=== PATIENT | male | born 1970 | race American Indian/Alaskan Native ===

== ENCOUNTER 2016-12-10 01:08 | Emergency (ER) | payer SELFPAY ==
[2016-12-10 02:25] VITALS: BP 130/86
[2016-12-10 03:01] LABS: Basophils % (Auto) 1.4 % (0.0-1.8); Eosinophils % (Auto) 1.9 % (0.0-4.3); Hemoglobin 14.6 gm/dl (11.8-15.2); Mean Corpuscular HGB Conc 33 % (32-34); Mean Corpuscular Hemoglobin 28 pg (28-32); Mean Corpuscular Volume 85 fl (84-94); Platelet Count 225 K/mm3 (140-440); Red Cell Distribution Width 13.9 % (13.2-15.2); White Blood Count 7.7 K/mm3 (4.5-11.0)
[2016-12-10 03:17] LABS: Alanine Aminotransferase 26 units/L (7-56); Albumin/Globulin Ratio 1.3 %; Alkaline Phosphatase 71 units/L (35-129); BUN/Creatinine Ratio 11.11; Bilirubin,Total 0.5 mg/dL (0.1-1.2); Blood Urea Nitrogen 10 mg/dL (9-20); Calcium 8.8 mg/dL (8.4-10.2); Carbon Dioxide 27 mmol/L (22-30); Chloride 99.9 mmol/L (98-107); Glucose 105 mg/dL (75-100); Lipase 40 units/L (13-60); Potassium 3.7 mmol/L (3.6-5.0); Sodium 141 mmol/L (137-145); Total Protein 7.2 g/dL (6.3-8.2)
[2016-12-10 03:21] LABS: Bilirubin,Urine NEG (Negative); Blood,Urine SM (Negative); Ketones,Urine NEG (Negative); Leukocyte Esterase,Urine NEG (Negative); Mucus,Urine FEW /HPF; Nitrite,Urine NEG (Negative); Protein,Urine <15 mg/dL mg/dL (Negative); Urobilinogen,Urine < 2.0 mg/dL (<2.0)
[2016-12-10 03:29] LABS: Anion Gap 18 mmol/L
--- NOTE | 2016-12-10 06:29 | Emergency Department Report ---
Chief Complaint: Abdominal Pain Stated Complaint: ABDOMINAL PAIN Time Seen by Provider: 12/10/16 06:28 - HPI History of Present Illness: Patient here complaining the upper abdominal pain 3 days. He is also complaining of burning with urination. Denies any fever or chills. Denies any nausea vomiting. Describes the pain as burning and it's 8 out of 10. - ROS Review of Systems: All systems are negative unless stated in HPI above. - Exam Vital Signs: Vital Signs 12/10/16 02:23 Temperature 98.3 F Pulse Rate 54 L Respiratory 18 Rate Blood Pressure 130/86 O2 Sat by Pulse 97 Oximetry Physical Exam: General: This is a 46-year-old male well-nourished well-developed in no acute distress. GI: Mild tenderness to palpate to mid upper abdomen above the umbilical area. No guarding or rebound tenderness. Bowel sounds in all quadrants. CV: S1, S2. Regular rate and rhythm. MSE screening note: Focused history and physical exam performed. Due to findings the following was ordered:see mdm ED Medical Decision Making - Lab Data Result diagrams: 12/10/16 02:41 12/10/16 02:41 Lab Results 12/10/16 12/10/16 12/10/16 Range/Units 02:41 02:41 Unknown WBC 7.7 (4.5-11.0) K/mm3 RBC 5.20 H (3.65-5.03) M/mm3 Hgb 14.6 (11.8-15.2) gm/dl Hct 44.0 (35.5-45.6) % MCV 85 (84-94) fl MCH 28 (28-32) pg MCHC 33 (32-34) % RDW 13.9 (13.2-15.2) % Plt Count 225 (140-440) K/mm3 Lymph % (Auto) 46.1 H (13.4-35.0) % [place] % (Auto) 5.9 (0.0-7.3) % Eos % (Auto) 1.9 (0.0-4.3) % Baso % (Auto) 1.4 (0.0-1.8) % Lymph # 3.5 (1.2-5.4) K/mm3 [place] # 0.4 (0.0-0.8) K/mm3 Eos # 0.1 (0.0-0.4) K/mm3 Baso # 0.1 (0.0-0.1) K/mm3 Seg Neutrophils % 44.7 (40.0-70.0) % Seg Neutrophils # 3.4 (1.8-7.7) K/mm3 Sodium 141 (137-145) mmol/L Potassium 3.7 (3.6-5.0) mmol/L Chloride 99.9 (98-107) mmol/L Carbon Dioxide 27 (22-30) mmol/L Anion Gap 18 mmol/L BUN 10 (9-20) mg/dL Creatinine 0.9 (0.8-1.5) mg/dL Estimated GFR > 60 ml/min BUN/Creatinine Ratio 11.11 % Glucose 105 H (75-100) mg/dL Calcium 8.8 (8.4-10.2) mg/dL Total Bilirubin 0.5 (0.1-1.2) mg/dL AST 77 H (5-40) units/L ALT 26 (7-56) units/L Alkaline Phosphatase 71 (35-129) units/L Total Protein 7.2 (6.3-8.2) g/dL Albumin 4.0 (3.9-5) g/dL Albumin/Globulin Ratio 1.3 % Lipase 40 (13-60) units/L Urine Color Yellow (Yellow) Urine Turbidity Clear (Clear) Urine pH 5.0 (5.0-7.0) Ur Specific [place] 1.012 (1.003-1.030) Urine Protein <15 mg/dl (Negative) mg/dL Urine Glucose (UA) Neg (Negative) mg/dL Urine Ketones Neg (Negative) mg/dL Urine Blood Sm (Negative) Urine Nitrite Neg (Negative) Urine Bilirubin Neg (Negative) Urine Urobilinogen < 2.0 (<2.0) mg/dL Ur Leukocyte Esterase Neg (Negative) Urine WBC (Auto) 1.0 (0.0-6.0) /HPF Urine RBC (Auto) 1.0 (0.0-6.0) /HPF Urine Mucus Few /HPF - Medical Decision Making Medical decision making: Patient seen by provider in triage area. Appropriate protocol activated and patient to main ED to be seen by physician. ED Disposition for MSE Condition: Stable
[2016-12-10] MEDS ORDERED: NARCAN 0.4 MG/1 ML ONE (22:01)
--- NOTE | 2016-12-11 14:56 | ED Elopement Review ---
ED Pt Elopement review - Results review Lab results: Laboratory Tests 12/10/16 12/10/16 12/10/16 02:41 02:41 Unknown WBC 7.7 RBC 5.20 H Hgb 14.6 Hct 44.0 MCV 85 MCH 28 MCHC 33 RDW 13.9 Plt Count 225 Lymph % (Auto) 46.1 H [place] % (Auto) 5.9 Eos % (Auto) 1.9 Baso % (Auto) 1.4 Lymph # 3.5 [place] # 0.4 Eos # 0.1 Baso # 0.1 Seg Neutrophils % 44.7 Seg Neutrophils # 3.4 Sodium 141 Potassium 3.7 Chloride 99.9 Carbon Dioxide 27 Anion Gap 18 BUN 10 Creatinine 0.9 Estimated GFR > 60 BUN/Creatinine Ratio 11.11 Glucose 105 H Calcium 8.8 Total Bilirubin 0.5 AST 77 H ALT 26 Alkaline Phosphatase 71 Total Protein 7.2 Albumin 4.0 Albumin/Globulin Ratio 1.3 Lipase 40 Urine Color Yellow Urine Turbidity Clear Urine pH 5.0 Ur Specific [place] 1.012 Urine Protein <15 mg/dl Urine Glucose (UA) Neg Urine Ketones Neg Urine Blood Sm Urine Nitrite Neg Urine Bilirubin Neg Urine Urobilinogen < 2.0 Ur Leukocyte Esterase Neg Urine WBC (Auto) 1.0 Urine RBC (Auto) 1.0 Urine Mucus Few - Call Back decision Pt Call Back Decision: No action required
== END 2016-12-10 19:30 | disposition left against medical advice (07) ==
LOC: ED 01:08
DX: R10.9 Unspecified abdominal pain (principal); R39.198 Other difficulties with micturition; Z53.21 Procedure and treatment not carried out due to patient leaving prior to being seen by health care provider
CPT/HCPCS: 36415; 80053; 81001; 83690; 85025; J2310

== ENCOUNTER 2017-01-19 19:04 | Emergency (ER) | payer OTHER ==
[2017-01-19 20:06] LABS: Hematocrit 46.3 % (35.5-45.6); Hemoglobin 15.8 gm/dl (11.8-15.2); Mean Corpuscular HGB Conc 34 % (32-34); Mean Corpuscular Hemoglobin 29 pg (28-32); Mean Corpuscular Volume 84 fl (84-94); Platelet Count 216 K/mm3 (140-440); Red Blood Count 5.51 M/mm3 (3.65-5.03); Red Cell Distribution Width 13.9 % (13.2-15.2); White Blood Count 8.1 K/mm3 (4.5-11.0)
[2017-01-19 20:19] LABS: Anion Gap 18 mmol/L; Blood Urea Nitrogen 11 mg/dL (9-20); Calcium 9.4 mg/dL (8.4-10.2); Carbon Dioxide 29 mmol/L (22-30); Chloride 95.2 mmol/L (98-107); Glucose 85 mg/dL (75-100); Potassium 3.7 mmol/L (3.6-5.0); Sodium 138 mmol/L (137-145)
[2017-01-19 20:34] LABS: Bilirubin,Urine NEG (Negative); Blood,Urine SM (Negative); Ketones,Urine NEG (Negative); Leukocyte Esterase,Urine NEG (Negative); Nitrite,Urine NEG (Negative); Protein,Urine <15 mg/dL mg/dL (Negative); Urobilinogen,Urine < 2.0 mg/dL (<2.0); WBC,Urine < 1.0 /HPF (0.0-6.0)
[2017-01-19] MEDS ORDERED: ZOFRAN ODT PO ONE (21:58)
[2017-01-19] MEDS ORDERED: NORCO 5/325 PO ONE (21:59)
[2017-01-19] MEDS ORDERED: PEPCID PO ONE (21:59)
[2017-01-19 22:09] LABS: Alanine Aminotransferase 24 units/L (7-56); Albumin 4.3 g/dL (3.9-5); Albumin/Globulin Ratio 1.1 %; Alkaline Phosphatase 83 units/L (35-129); Bilirubin,Total 0.5 mg/dL (0.1-1.2); Lipase 31 units/L (13-60); Total Protein 8.1 g/dL (6.3-8.2)
--- NOTE | 2017-01-19 22:13 | Emergency Department Report ---
HPI - General Chief Complaint: Nausea/Vomiting/Diarrhea Time Seen by Provider: 01/19/17 21:14 - HPI HPI: The patient is a 46-year-old male who presents for evaluation of vomiting, diarrhea, and abdominal pain. The patient reports 1-2 weeks of recurring cramping mid abdominal pain, mild in severity, exacerbated with retching and vomiting. The patient states that he has experienced intermittent nausea or vomiting, and frequent episodes of loose watery stools for the same duration. The patient denies fever, dysuria, hematuria, blood in the stools, black tarry stools, recent antibiotic use, travel outside the country, exposure to raw or uncooked seafood, reheated foods, untreated water, unpasteurized dairy. ED Past Medical Hx - Past Medical History Hx Hypertension: Yes Hx GERD: Yes - Social History Smoking Status: Never Smoker Substance Use Type: None - Medications Home Medications: Home Medications Medication Instructions Recorded Confirmed Last Taken Type HYDROcodone/APAP 5-325 [[place] 1 each PO Q4HR PRN #15 tablet 02/22/16 Unknown Rx 5/325] Omeprazole [PriLOSEC] 40 mg PO BID 02/22/16 02/22/16 02/21/16 08:00 History Ondansetron [Zofran Odt] 4 mg PO Q8HR PRN #9 tab.rapdis 02/22/16 Unknown Rx Famotidine [Pepcid] 20 mg PO BID #30 tablet 01/19/17 Unknown Rx HYDROcodone/APAP 7.5-325 [[place] 1 each PO Q8HR PRN #15 tablet 01/19/17 Unknown Rx 7.5-325 mg TAB] Omeprazole Magnesium [PriLOSEC Otc] 40 mg PO BID #30 tab 01/19/17 Unknown Rx Ondansetron [Zofran TAB] 4 mg PO Q8HR PRN #20 tablet 01/19/17 Unknown Rx ED Review of Systems ROS: Stated complaint: N/V /CONRADO/WEIGHT LOSS Other details as noted in HPI Constitutional: denies: fever ENT: denies: throat or neck pain Respiratory: denies: cough, shortness of breath Cardiovascular: denies: chest pain Endocrine: denies unexplained weight loss or gain Gastrointestinal: reports abdominal pain, nausea, vomiting, diarrhea Genitourinary: denies: dysuria Musculoskeletal: denies: leg swelling Skin: denies: rash Neurological: denies: headache Hematological/Lymphatic: denies: easy bleeding or easy bruising Psych: denies sadness or hopelessness Physical Exam - Physical Exam Vital Signs: Vital Signs 01/19/17 19:24 Temperature 97.8 F Pulse Rate 62 Blood Pressure 146/96 O2 Sat by Pulse 99 Oximetry Physical Exam: General: well-nourished, well-developed, no acute distress Head: Normocephalic, atraumatic Eyes: normal sclera ENT: Mucous membranes are pink and moist Neck: trachea midline, neck supple, No neck stiffness, no cervical adenopathy Respiratory: Breath sounds equal bilaterally, no wheezing, rales, or rhonchi Cardio: S1 and S2 present, no murmurs, rubs, gallops, capillary refill is brisk Abdomen: Normoactive bowel sounds, soft abdomen, epigastric tenderness to palpation present, no rigidity, no guarding or rebound tenderness Musc: No pitting edema Skin: No rash Neuro: no facial drooping, normal speech Psych: Normal affect ED Course Vital Signs 01/19/17 19:24 Temperature 97.8 F Pulse Rate 62 Blood Pressure 146/96 O2 Sat by Pulse 99 Oximetry ED Medical Decision Making - Lab Data Result diagrams: 01/19/17 19:42 01/19/17 19:42 - Medical Decision Making The patient was seen and examined by myself. The patient is placed on a telemetry monitor and continuous pulse ox. On initial evaluation, the patient was found to be in no distress. Evaluation orders were placed. The patient is given a tablet of [place] and present for his pain and Zofran for nausea. Lab results reveal elevated RBC, hemoglobin, and hematocrit, consistent with hemoconcentration and exam findings of dehydration, and otherwise labs were grossly unremarkable, including normal LFTs and lipase. The patient was reevaluated and reported that his symptoms were markedly improved. The patient is stable for discharge with outpatient follow-up. The patient is given follow- up and return instructions. The patient expressed understanding and agreed with the plan. The patient is discharged in stable condition. Critical care attestation.: If time is entered above; I have spent that time in minutes in the direct care of this critically ill patient, excluding procedure time. ED Disposition Clinical Impression: Abdominal pain, acute, epigastric, Nausea and vomiting in adult patient, Dehydration Disposition: DISCHARGED TO HOME OR SELFCARE Is pt being admited?: No Does the pt Need Aspirin: No Condition: Stable Instructions: Gastroenteritis (ED), Nutrition Tips for Relief of Diarrhea (ED) , Peptic Ulcer (ED), Diet for Ulcers and Gastritis (ED) Prescriptions: Famotidine [Pepcid] 20 mg PO BID #30 tablet HYDROcodone/APAP 7.5-325 [[place] 7.5-325 mg TAB] 1 each PO Q8HR PRN #15 tablet PRN Reason: Pain Ondansetron [Zofran TAB] 4 mg PO Q8HR PRN #20 tablet PRN Reason: Nausea Referrals: [facility] [Provider Group] - 3-5 Days Time of Disposition: 22:07
[2017-01-19 22:18] LABS: Bilirubin,Direct < 0.2 mg/dL (0-0.2); Bilirubin,Indirect 0.3 mg/dL
[2017-01-19 22:46] VITALS: BP 124/92
== END 2017-01-19 22:39 | disposition home or self-care (01) ==
LOC: ED 19:04
DX: I10 Essential (primary) hypertension (principal); K21.9 Gastro-esophageal reflux disease without esophagitis; E86.0 Dehydration; R10.13 Epigastric pain; R11.2 Nausea with vomiting, unspecified; R19.7 Diarrhea, unspecified; Z88.1 Allergy status to other antibiotic agents; Z79.899 Other long term (current) drug therapy
CPT/HCPCS: 36415; 80048; 80074; 81001; 83690; 85025; Q0162

== ENCOUNTER 2017-06-10 08:32 | Emergency (ER) | payer OTHER ==
[2017-06-10 09:10] LABS: Basophils % (Auto) 1.2 % (0.0-1.8); Hematocrit 45.7 % (35.5-45.6); Hemoglobin 15.4 gm/dl (11.8-15.2); Mean Corpuscular HGB Conc 34 % (32-34); Mean Corpuscular Hemoglobin 29 pg (28-32); Mean Corpuscular Volume 86 fl (84-94); Platelet Count 207 K/mm3 (140-440); Red Cell Distribution Width 14.1 % (13.2-15.2); White Blood Count 5.7 K/mm3 (4.5-11.0)
[2017-06-10 09:21] LABS: Anion Gap 17 mmol/L; BUN/Creatinine Ratio 8.18; Blood Urea Nitrogen 9 mg/dL (9-20); Calcium 9.3 mg/dL (8.4-10.2); Carbon Dioxide 29 mmol/L (22-30); Chloride 99.6 mmol/L (98-107); Glucose 85 mg/dL (75-100); Potassium 4.6 mmol/L (3.6-5.0); Sodium 141 mmol/L (137-145)
[2017-06-10 09:47] LABS: Bacteria,Urine 1+ /HPF (Negative); Bilirubin,Urine NEG (Negative); Blood,Urine SM (Negative); Ketones,Urine 20 mg/dL (Negative); Leukocyte Esterase,Urine NEG (Negative); Nitrite,Urine NEG (Negative); Protein,Urine <15 mg/dL mg/dL (Negative); Urobilinogen,Urine < 2.0 mg/dL (<2.0)
[2017-06-10 09:53] LABS: WBC,Urine < 1.0 /HPF (0.0-6.0)
[2017-06-10] MEDS ORDERED: PEPCID PO ONE (12:54)
[2017-06-10] MEDS ORDERED: CARAFATE PO ONE (12:54)
[2017-06-10] MEDS ORDERED: ZOFRAN ODT PO ONE (12:54)
--- NOTE | 2017-06-10 12:55 | Emergency Department Report ---
ED General Adult HPI - General Chief complaint: Nausea/Vomiting/Diarrhea Stated complaint: N/V/D Time Seen by Provider: 06/10/17 12:42 Source: patient, EMS (ems notes not available at time of chart dictation) Mode of arrival: Ambulatory Limitations: No Limitations - History of Present Illness Initial comments: This is a 47-year-old male. He is previously unknown to me. 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 Patient has a history of hiatal hernia and constipation. He has been taking MiraLAX for the past 2 weeks. He MiraLAX twice daily. He presents to the ER with abdominal cramping, diarrhea, and resolved nausea and vomiting. The abdominal cramping is intermittent, now resolved, and does not have any exacerbating or relieving factors. He reports 2 episodes of nonbloody, nonbilious emesis in the past 48 hours. He reports that everything he eats "goes right through me." There is no headache, neck pain, chest pain, shortness of breath, there is no testicular pain, there are no irritative or obstructive urinary symptoms. -: Gradual Severity scale (0 -10): 9 Quality: aching Consistency: intermittent Improves with: none Worsens with: none Associated Symptoms: nausea/vomiting. denies: confusion, chest pain, shortness of breath, syncope, weakness - Related Data Home Medications Medication Instructions Recorded Confirmed Last Taken Omeprazole [PriLOSEC] 40 mg PO BID 02/22/16 02/22/16 02/21/16 08:00 Previous Rx's Medication Instructions Recorded Last Taken Type HYDROcodone/APAP 5-325 [[place] 1 each PO Q4HR PRN #15 tablet 02/22/16 Unknown Rx 5/325] Ondansetron [Zofran Odt] 4 mg PO Q8HR PRN #9 tab.rapdis 02/22/16 Unknown Rx Famotidine [Pepcid] 20 mg PO BID #30 tablet 01/19/17 Unknown Rx HYDROcodone/APAP 7.5-325 [[place] 1 each PO Q8HR PRN #15 tablet 01/19/17 Unknown Rx 7.5-325 mg TAB] Omeprazole Magnesium [PriLOSEC Otc] 40 mg PO BID #30 tab 01/19/17 Unknown Rx Ondansetron [Zofran TAB] 4 mg PO Q8HR PRN #20 tablet 01/19/17 Unknown Rx Dicyclomine [Bentyl] 10 mg PO QID PRN #20 capsule 06/10/17 Unknown Rx Ondansetron [Zofran Odt] 4 mg PO QID PRN #20 tab.rapdis 06/10/17 Unknown Rx Allergies Allergy/AdvReac Type Severity Reaction Status Date / Time amoxicillin Allergy Hives Verified 02/22/16 08:44 ED Review of Systems ROS: Stated complaint: N/V/D Other details as noted in HPI Constitutional: denies: fever, malaise Eyes: denies: vision change ENT: denies: epistaxis Respiratory: denies: cough Cardiovascular: denies: chest pain Gastrointestinal: nausea, vomiting, diarrhea Genitourinary: denies: dysuria Musculoskeletal: denies: myalgia Skin: denies: lesions Neurological: denies: headache Psychiatric: denies: anxiety ED Past Medical Hx - Past Medical History Previous Medical History?: Yes Hx Hypertension: Yes Hx GERD: Yes - Surgical History Past Surgical History?: No - Social History Smoking Status: Current Some Day Smoker Substance Use Type: Marijuana, Non Opiate Pain, Prescribed - Medications Home Medications: Home Medications Medication Instructions Recorded Confirmed Last Taken Type HYDROcodone/APAP 5-325 [[place] 1 each PO Q4HR PRN #15 tablet 02/22/16 Unknown Rx 5/325] Omeprazole [PriLOSEC] 40 mg PO BID 02/22/16 02/22/16 02/21/16 08:00 History Ondansetron [Zofran Odt] 4 mg PO Q8HR PRN #9 tab.rapdis 02/22/16 Unknown Rx Famotidine [Pepcid] 20 mg PO BID #30 tablet 01/19/17 Unknown Rx HYDROcodone/APAP 7.5-325 [[place] 1 each PO Q8HR PRN #15 tablet 01/19/17 Unknown Rx 7.5-325 mg TAB] Omeprazole Magnesium [PriLOSEC Otc] 40 mg PO BID #30 tab 01/19/17 Unknown Rx Ondansetron [Zofran TAB] 4 mg PO Q8HR PRN #20 tablet 01/19/17 Unknown Rx Dicyclomine [Bentyl] 10 mg PO QID PRN #20 capsule 06/10/17 Unknown Rx Ondansetron [Zofran Odt] 4 mg PO QID PRN #20 tab.rapdis 06/10/17 Unknown Rx ED Physical Exam - General Limitations: No Limitations General appearance: alert, in no apparent distress - Head Head exam: Present: atraumatic, normocephalic - Eye Eye exam: Present: normal appearance, EOMI. Absent: nystagmus - ENT ENT exam: Present: normal exam, normal orophraynx, mucous membranes moist, normal external ear exam - Neck Neck exam: Present: normal inspection, full ROM. Absent: tenderness, meningismus - Respiratory Respiratory exam: Present: normal lung sounds bilaterally. Absent: respiratory distress, wheezes, rales, rhonchi, stridor, chest wall tenderness - Cardiovascular Cardiovascular Exam: Present: normal rhythm, bradycardia, normal heart sounds. Absent: systolic murmur, diastolic murmur, rubs, gallop - GI/Abdominal GI/Abdominal exam: Present: soft, normal bowel sounds. Absent: distended, tenderness, guarding, rebound, rigid, pulsatile mass, hernia - Rectal Rectal exam: Present: deferred - Extremities Exam Extremities exam: Present: normal inspection, full ROM, normal capillary refill. Absent: pedal edema, joint swelling - Back Exam Back exam: Present: normal inspection, full ROM. Absent: tenderness, CVA tenderness (R), CVA tenderness (L), muscle spasm, paraspinal tenderness, vertebral tenderness - Neurological Exam Neurological exam: Present: alert, oriented X3, normal gait, other (Extraocular movements intact. Tongue midline. No facial droop. Facial sensation intact to light touch in the V1, V2, V3 distribution bilaterally. 5 and 5 strength in 4 extremities.. Sensation is intact to light touch in 4 extremities.). Absent : motor sensory deficit - Psychiatric Psychiatric exam: Present: normal affect, normal mood - Skin Skin exam: Present: warm, dry, intact, normal color. Absent: rash ED Course Vital Signs 06/10/17 06/10/17 06/10/17 08:38 12:00 14:00 Temperature 97.5 F L 97.9 F 98.9 F Pulse Rate 55 L 53 L 62 Respiratory 18 18 16 Rate Blood Pressure 156/91 Blood Pressure 158/76 155/93 [Left] O2 Sat by Pulse 100 100 98 Oximetry ED Medical Decision Making - Lab Data Result diagrams: 06/10/17 08:55 06/10/17 08:55 Vital Signs 06/10/17 06/10/17 08:38 12:00 Temperature 97.5 F L 97.9 F Pulse Rate 55 L 53 L Respiratory 18 18 Rate Blood Pressure 156/91 Blood Pressure 158/76 [Left] O2 Sat by Pulse 100 100 Oximetry Lab Results 06/10/17 06/10/17 06/10/17 Range/Units 08:55 08:55 09:16 WBC 5.7 (4.5-11.0) K/mm3 RBC 5.30 H (3.65-5.03) M/mm3 Hgb 15.4 H (11.8-15.2) gm/dl Hct 45.7 H (35.5-45.6) % MCV 86 (84-94) fl MCH 29 (28-32) pg MCHC 34 (32-34) % RDW 14.1 (13.2-15.2) % Plt Count 207 (140-440) K/mm3 Lymph % (Auto) 28.3 (13.4-35.0) % [place] % (Auto) 5.7 (0.0-7.3) % Eos % (Auto) 1.0 (0.0-4.3) % Baso % (Auto) 1.2 (0.0-1.8) % Lymph # 1.6 (1.2-5.4) K/mm3 [place] # 0.3 (0.0-0.8) K/mm3 Eos # 0.1 (0.0-0.4) K/mm3 Baso # 0.1 (0.0-0.1) K/mm3 Seg Neutrophils % 63.8 (40.0-70.0) % Seg Neutrophils # 3.6 (1.8-7.7) K/mm3 Sodium 141 (137-145) mmol/L Potassium 4.6 (3.6-5.0) mmol/L Chloride 99.6 (98-107) mmol/L Carbon Dioxide 29 (22-30) mmol/L Anion Gap 17 mmol/L BUN 9 (9-20) mg/dL Creatinine 1.1 (0.8-1.5) mg/dL Estimated GFR > 60 ml/min BUN/Creatinine Ratio 8.18 % Glucose 85 (75-100) mg/dL POC Glucose (70-105) Calcium 9.3 (8.4-10.2) mg/dL Urine Color [place] (Yellow) Urine Turbidity Clear (Clear) Urine pH 7.0 (5.0-7.0) Ur Specific [place] 1.011 (1.003-1.030) Urine Protein <15 mg/dl (Negative) mg/dL Urine Glucose (UA) Neg (Negative) mg/dL Urine Ketones 20 (Negative) mg/dL Urine Blood Sm (Negative) Urine Nitrite Neg (Negative) Urine Bilirubin Neg (Negative) Urine Urobilinogen < 2.0 (<2.0) mg/dL Ur Leukocyte Esterase Neg (Negative) Urine WBC (Auto) < 1.0 (0.0-6.0) /HPF Urine RBC (Auto) 2.0 (0.0-6.0) /HPF Urine Bacteria (Auto) 1+ (Negative) /HPF 06/10/17 Range/Units 12:28 WBC (4.5-11.0) K/mm3 RBC (3.65-5.03) M/mm3 Hgb (11.8-15.2) gm/dl Hct (35.5-45.6) % MCV (84-94) fl MCH (28-32) pg MCHC (32-34) % RDW (13.2-15.2) % Plt Count (140-440) K/mm3 Lymph % (Auto) (13.4-35.0) % [place] % (Auto) (0.0-7.3) % Eos % (Auto) (0.0-4.3) % Baso % (Auto) (0.0-1.8) % Lymph # (1.2-5.4) K/mm3 [place] # (0.0-0.8) K/mm3 Eos # (0.0-0.4) K/mm3 Baso # (0.0-0.1) K/mm3 Seg Neutrophils % (40.0-70.0) % Seg Neutrophils # (1.8-7.7) K/mm3 Sodium (137-145) mmol/L Potassium (3.6-5.0) mmol/L Chloride (98-107) mmol/L Carbon Dioxide (22-30) mmol/L Anion Gap mmol/L BUN (9-20) mg/dL Creatinine (0.8-1.5) mg/dL Estimated GFR ml/min BUN/Creatinine Ratio % Glucose (75-100) mg/dL POC Glucose 54 L (70-105) Calcium (8.4-10.2) mg/dL Urine Color (Yellow) Urine Turbidity (Clear) Urine pH (5.0-7.0) Ur Specific [place] (1.003-1.030) Urine Protein (Negative) mg/dL Urine Glucose (UA) (Negative) mg/dL Urine Ketones (Negative) mg/dL Urine Blood (Negative) Urine Nitrite (Negative) Urine Bilirubin (Negative) Urine Urobilinogen (<2.0) mg/dL Ur Leukocyte Esterase (Negative) Urine WBC (Auto) (0.0-6.0) /HPF Urine RBC (Auto) (0.0-6.0) /HPF Urine Bacteria (Auto) (Negative) /HPF - Medical Decision Making Differential diagnosis: Enteritis, diarrhea, viral syndrome, medication side effects Assessment and plan: 47-year-old male with no abdominal tenderness, rebound or guarding, with reported complaints of abdominal cramping and diarrhea in the context of taking MiraLAX twice daily. Symptoms most likely a medication side effect. Patient is instructed to decrease frequency in which she takes is MiraLAX. He is instructed to increase consumption of stool bulking agents, such as fiber. Had asymptomatic hypoglycemia, the patient was fed, remains sober and awake and alert, repeat Accu-Chek within normal limits. Given his physical exam, and reported symptoms, I do believe the patient requires advanced imaging at this time. The patient is suitable to follow up with his outpatient crm marketing executive. Critical care attestation.: If time is entered above; I have spent that time in minutes in the direct care of this critically ill patient, excluding procedure time. ED Disposition Clinical Impression: Abdominal cramping Disposition: DC-01 TO HOME OR SELFCARE Is pt being admited?: No Does the pt Need Aspirin: No Condition: Stable Instructions: Acute Diarrhea (ED) Additional Instructions: decreased consumption of MiraLAX to once daily. Continue outpatient medications otherwise. Take the pain medication, nausea medication as directed. Consume lots of fiber which will help to increase bulk of stool. Follow-up with her crm marketing executive within the next 3 weeks. Return to the ER right away with pain, worsened pain, migration of pain, fevers, chills, chest pain, shortness of breath, confusion, intractable nausea or vomiting, inability to tolerate liquid feeds. Prescriptions: Dicyclomine [Bentyl] 10 mg PO QID PRN #20 capsule PRN Reason: Pain Ondansetron [Zofran Odt] 4 mg PO QID PRN #20 tab.rapdis PRN Reason: Nausea Referrals: PRIMARY CARE, [Primary Care Provider] - 3-5 Days MARY MARIE MD [Staff Physician] - 3-5 Days Forms: Work/School Release Form(ED)
[2017-06-10 14:16] VITALS: BP 155/93
== END 2017-06-10 14:00 | disposition home or self-care (01) ==
LOC: ED 08:32
DX: R10.9 Unspecified abdominal pain (principal); I10 Essential (primary) hypertension; K21.9 Gastro-esophageal reflux disease without esophagitis; F12.90 Cannabis use, unspecified, uncomplicated; Z72.0 Tobacco use; Z88.1 Allergy status to other antibiotic agents
CPT/HCPCS: 36415; 80048; 81001; 82962; 85025; 99284; Q0162

== ENCOUNTER 2017-07-11 11:21 | Emergency (ER) | payer OTHER ==
[2017-07-11 12:07] LABS: Eosinophils % (Auto) 0.6 % (0.0-4.3); Hematocrit 47.3 % (35.5-45.6); Hemoglobin 15.6 gm/dl (11.8-15.2); Mean Corpuscular HGB Conc 33 % (32-34); Mean Corpuscular Hemoglobin 28 pg (28-32); Mean Corpuscular Volume 85 fl (84-94); Platelet Count 236 K/mm3 (140-440); Red Blood Count 5.55 M/mm3 (3.65-5.03); Red Cell Distribution Width 13.9 % (13.2-15.2); White Blood Count 6.1 K/mm3 (4.5-11.0)
[2017-07-11 12:27] LABS: Albumin 4.2 g/dL (3.9-5); Albumin/Globulin Ratio 1.1 %; Alkaline Phosphatase 64 units/L (35-129); Anion Gap 16 mmol/L; BUN/Creatinine Ratio 7.77; Blood Urea Nitrogen 7 mg/dL (9-20); Calcium 9.2 mg/dL (8.4-10.2); Carbon Dioxide 27 mmol/L (22-30); Chloride 101.5 mmol/L (98-107); Glucose 96 mg/dL (75-100); Lipase 23 units/L (13-60); Potassium 3.8 mmol/L (3.6-5.0); Sodium 141 mmol/L (137-145); Total Protein 7.9 g/dL (6.3-8.2)
[2017-07-11 12:50] VITALS: BP 144/87
[2017-07-11 13:00] LABS: Alanine Aminotransferase 21 units/L (7-56)
[2017-07-11] MEDS ORDERED: MOTRIN PO ONE (13:15)
[2017-07-11] MEDS ORDERED: ULTRAM PO ONE (13:15)
[2017-07-11 13:28] LABS: Bacteria,Urine 1+ /HPF (Negative); Bilirubin,Urine NEG (Negative); Blood,Urine SM (Negative); Ketones,Urine TR mg/dL (Negative); Leukocyte Esterase,Urine NEG (Negative); Nitrite,Urine NEG (Negative); Protein,Urine <15 mg/dL mg/dL (Negative); Urobilinogen,Urine < 2.0 mg/dL (<2.0)
--- NOTE | 2017-07-11 14:12 | Emergency Department Report ---
- General Chief Complaint: Headache Stated Complaint: BP HIGH/HEADACHE Time Seen by Provider: 07/11/17 12:55 Source: patient Mode of arrival: Ambulatory Limitations: No Limitations - History of Present Illness Initial Comments: 47-year-old male with a past medical history GERD, hypertension, IBS, hiatal hernia processes are possible complaints of frontal headache intermittently for last couple days, increase as pressure and drainage, nasal congestion, and sneezing. Frontal headache rated [id number] has somewhat improved with Tylenol prior to arrival. Patient also having intermittent vomiting. Complains of some epigastric pain. Temp of 101 prior to arrival. No complaints of cough or shortness of breath. Patient also states his blood pressure was elevated this morning with a pressure in the 190s systolic - Related Data Home Medications Medication Instructions Recorded Confirmed Last Taken Omeprazole [PriLOSEC] 40 mg PO BID 02/22/16 02/22/16 02/21/16 08:00 Previous Rx's Medication Instructions Recorded Last Taken Type HYDROcodone/APAP 5-325 [[place] 1 each PO Q4HR PRN #15 tablet 02/22/16 Unknown Rx 5/325] Ondansetron [Zofran Odt] 4 mg PO Q8HR PRN #9 tab.rapdis 02/22/16 Unknown Rx Famotidine [Pepcid] 20 mg PO BID #30 tablet 01/19/17 Unknown Rx HYDROcodone/APAP 7.5-325 [[place] 1 each PO Q8HR PRN #15 tablet 01/19/17 Unknown Rx 7.5-325 mg TAB] Omeprazole Magnesium [PriLOSEC Otc] 40 mg PO BID #30 tab 01/19/17 Unknown Rx Ondansetron [Zofran TAB] 4 mg PO Q8HR PRN #20 tablet 01/19/17 Unknown Rx Dicyclomine [Bentyl] 10 mg PO QID PRN #20 capsule 06/10/17 Unknown Rx Ondansetron [Zofran Odt] 4 mg PO QID PRN #20 tab.rapdis 06/10/17 Unknown Rx Cetirizine HCl [ZyrTEC] 10 mg PO DAILY PRN #20 capsule 07/11/17 Unknown Rx Doxycycline [Vibramycin CAP] 100 mg PO Q12HR #14 capsule 07/11/17 Unknown Rx Ondansetron [Zofran Odt] 4 mg PO QID PRN #20 tab.rapdis 07/11/17 Unknown Rx Sodium Chloride [Saline Nasal 2 spray NS PRN #1 bottle 07/11/17 Unknown Rx [place]] traMADol [Ultram 50 MG tab] 50 mg PO Q6HR PRN #30 tablet 07/11/17 Unknown Rx Allergies Allergy/AdvReac Type Severity Reaction Status Date / Time amoxicillin Allergy Hives Verified 07/11/17 11:35 ED Review of Systems ROS: Stated complaint: BP HIGH/HEADACHE Other details as noted in HPI Comment: All other systems reviewed and negative Other: Constitutional: No fevers chills Eyes: No eye pain visual changes ENT: as per hpi Neck: Denies pain Respiratory: Denies cough wheezing shortness of breath Cardiovascular: Denies chest pain, palpitations, syncope GI: Denies abdominal pain, nausea, vomiting, diarrhea : Denies dysuria Musculoskeletal: Denies back pain Skin: Denies rash, lesions, erythema Neurologic: Denies numbness, weakness Psychiatric: Denies suicidal ideation, hallucinations ED Past Medical Hx - Past Medical History Hx Hypertension: Yes Hx GERD: Yes Additional medical history: IBS. HIATAL HERNIA - Surgical History Past Surgical History?: No - Social History Smoking Status: Former Smoker Substance Use Type: None - Medications Home Medications: Home Medications Medication Instructions Recorded Confirmed Last Taken Type HYDROcodone/APAP 5-325 [[place] 1 each PO Q4HR PRN #15 tablet 02/22/16 Unknown Rx 5/325] Omeprazole [PriLOSEC] 40 mg PO BID 02/22/16 02/22/16 02/21/16 08:00 History Ondansetron [Zofran Odt] 4 mg PO Q8HR PRN #9 tab.rapdis 02/22/16 Unknown Rx Famotidine [Pepcid] 20 mg PO BID #30 tablet 01/19/17 Unknown Rx HYDROcodone/APAP 7.5-325 [[place] 1 each PO Q8HR PRN #15 tablet 01/19/17 Unknown Rx 7.5-325 mg TAB] Omeprazole Magnesium [PriLOSEC Otc] 40 mg PO BID #30 tab 01/19/17 Unknown Rx Ondansetron [Zofran TAB] 4 mg PO Q8HR PRN #20 tablet 01/19/17 Unknown Rx Dicyclomine [Bentyl] 10 mg PO QID PRN #20 capsule 06/10/17 Unknown Rx Ondansetron [Zofran Odt] 4 mg PO QID PRN #20 tab.rapdis 06/10/17 Unknown Rx Cetirizine HCl [ZyrTEC] 10 mg PO DAILY PRN #20 capsule 07/11/17 Unknown Rx Doxycycline [Vibramycin CAP] 100 mg PO Q12HR #14 capsule 07/11/17 Unknown Rx Ondansetron [Zofran Odt] 4 mg PO QID PRN #20 tab.rapdis 07/11/17 Unknown Rx Sodium Chloride [Saline Nasal 2 spray NS PRN #1 bottle 07/11/17 Unknown Rx [place]] traMADol [Ultram 50 MG tab] 50 mg PO Q6HR PRN #30 tablet 07/11/17 Unknown Rx ED Physical Exam - General Limitations: No Limitations - Other Other exam information: General: No limitations, patient is alert in no acute distress Head exam: Atraumatic, normocephalic Eyes exam: Normal appearance, pupils equal reactive to light, extraocular movements intact ENT: Moist mucous membrane, normal oropharynx, frontal sinus tenderness, nasal congestion Neck exam: Normal inspection, full range of motion, no meningismus nontender Respiratory exam: Clear to auscultation bilateral, no wheezes, rales, crackles Cardiovascular: Normal rate and rhythm, normal heart sounds Abdomen: Soft, nondistended, and nontender, with normal bowel sounds, no rebound, or guarding Extremity: Full range of motion normal inspection no deformity Back: Normal Inspection, full range of motion, no tenderness Neurologic: Alert, oriented x3, cranial nerves intact, no motor or sensory deficit Psychiatric: normal affect, normal mood Skin: Warm, dry, intact ED Course Vital Signs 07/11/17 07/11/17 11:40 12:50 Temperature 98.1 F Pulse Rate 63 Respiratory 17 Rate Blood Pressure 162/93 Blood Pressure 144/87 [Right] O2 Sat by Pulse 100 Oximetry - Reevaluation(s) Reevaluation #1: 07/11/17 Tramadol and Toradol given ED Medical Decision Making - Lab Data Result diagrams: 07/11/17 11:54 07/11/17 11:54 Lab Results 07/11/17 07/11/17 07/11/17 Range/Units 11:54 11:54 13:00 WBC 6.1 (4.5-11.0) K/mm3 RBC 5.55 H (3.65-5.03) M/mm3 Hgb 15.6 H (11.8-15.2) gm/dl Hct 47.3 H (35.5-45.6) % MCV 85 (84-94) fl MCH 28 (28-32) pg MCHC 33 (32-34) % RDW 13.9 (13.2-15.2) % Plt Count 236 (140-440) K/mm3 Lymph % (Auto) 31.4 (13.4-35.0) % [place] % (Auto) 6.2 (0.0-7.3) % Eos % (Auto) 0.6 (0.0-4.3) % Baso % (Auto) 1.0 (0.0-1.8) % Lymph # 1.9 (1.2-5.4) K/mm3 [place] # 0.4 (0.0-0.8) K/mm3 Eos # 0.0 (0.0-0.4) K/mm3 Baso # 0.1 (0.0-0.1) K/mm3 Seg Neutrophils % 60.8 (40.0-70.0) % Seg Neutrophils # 3.7 (1.8-7.7) K/mm3 Sodium 141 (137-145) mmol/L Potassium 3.8 (3.6-5.0) mmol/L Chloride 101.5 (98-107) mmol/L Carbon Dioxide 27 (22-30) mmol/L Anion Gap 16 mmol/L BUN 7 L (9-20) mg/dL Creatinine 0.9 (0.8-1.5) mg/dL Estimated GFR > 60 ml/min BUN/Creatinine Ratio 7.77 % Glucose 96 (75-100) mg/dL Calcium 9.2 (8.4-10.2) mg/dL Total Bilirubin 0.80 (0.1-1.2) mg/dL AST 22 (5-40) units/L ALT 21 (7-56) units/L Alkaline Phosphatase 64 (35-129) units/L Total Protein 7.9 (6.3-8.2) g/dL Albumin 4.2 (3.9-5) g/dL Albumin/Globulin Ratio 1.1 % Lipase 23 (13-60) units/L Urine Color Yellow (Yellow) Urine Turbidity Clear (Clear) Urine pH 7.0 (5.0-7.0) Ur Specific [place] 1.012 (1.003-1.030) Urine Protein <15 mg/dl (Negative) mg/dL Urine Glucose (UA) Neg (Negative) mg/dL Urine Ketones Tr (Negative) mg/dL Urine Blood Sm (Negative) Urine Nitrite Neg (Negative) Urine Bilirubin Neg (Negative) Urine Urobilinogen < 2.0 (<2.0) mg/dL Ur Leukocyte Esterase Neg (Negative) Urine WBC (Auto) 1.0 (0.0-6.0) /HPF Urine RBC (Auto) 3.0 (0.0-6.0) /HPF U Epithel Cells (Auto) < 1.0 (0-13.0) /HPF Urine Bacteria (Auto) 1+ (Negative) /HPF - Medical Decision Making pt still taking prilosec. Meds for pain and sinusitis will be prescribed. BP improved without intervention. Labs unremarkable - Differential Diagnosis sinusitis, viral syndrome, allergic rhinitis, uncont hypertension/emergency Critical Care Time: No Critical care attestation.: If time is entered above; I have spent that time in minutes in the direct care of this critically ill patient, excluding procedure time. ED Disposition Clinical Impression: Sinusitis, HTN (hypertension), URI (upper respiratory infection) Disposition: DC-01 TO HOME OR SELFCARE Is pt being admited?: No Does the pt Need Aspirin: No Condition: Stable Instructions: Sinusitis (ED), Upper Respiratory Infection (ED), Hypertension ( ED) Additional Instructions: Take medications as prescribed. Return if symptoms worsen. Prescriptions: Cetirizine HCl [ZyrTEC] 10 mg PO DAILY PRN #20 capsule PRN Reason: Allergy Symptoms Doxycycline [Vibramycin CAP] 100 mg PO Q12HR #14 capsule Ondansetron [Zofran Odt] 4 mg PO QID PRN #20 tab.rapdis PRN Reason: Nausea Sodium Chloride [Saline Nasal [place]] 2 spray NS PRN #1 bottle traMADol [Ultram 50 MG tab] 50 mg PO Q6HR PRN #30 tablet PRN Reason: Pain Referrals: PRIMARY CARE, [Primary Care Provider] - 3-5 Days DICKSON OSEGUERA MD [Staff Physician] - 3-5 Days Time of Disposition: 14:12
== END 2017-07-11 14:41 | disposition home or self-care (01) ==
LOC: ED 11:21
DX: J32.9 Chronic sinusitis, unspecified (principal); I10 Essential (primary) hypertension; J06.9 Acute upper respiratory infection, unspecified; K21.9 Gastro-esophageal reflux disease without esophagitis; K58.9 Irritable bowel syndrome, unspecified; Z87.891 Personal history of nicotine dependence; Z88.1 Allergy status to other antibiotic agents
CPT/HCPCS: 36415; 80053; 81001; 83690; 85025; 99283

== ENCOUNTER 2018-06-17 09:11 | Emergency (ER) | payer SELFPAY ==
[2018-06-17] MEDS ORDERED: PEPCID IV ONE (11:30)
[2018-06-17] MEDS ORDERED: ZOFRAN IV ONE (11:30)
[2018-06-17] MEDS ORDERED: MORPHINE IV ONE (11:30)
[2018-06-17] MEDS ORDERED: NACL 0.9% 1000 ML 1,000 ML IV ONE (11:30)
--- NOTE | 2018-06-17 11:31 | Emergency Department Report ---
Blank Doc - Documentation Documentation: Patient is a 48-year-old [place] male who is complaining of 2 weeks of epigastric discomfort with intermittent diarrhea. Patient states diarrhea appears normal in color. Patient states for the last 2 days she's had dark- colored vomit. Patient states he's lost weight in the last 2 weeks. Focused physical exam patient does have some epigastric discomfort with no rebound or guarding. Heart and lung sounds are within normal limits. Patient removed to treatment room for IV fluidsfor symptomatic relief as well as laboratory studies and a CT of the abdomen and pelvis.
--- NOTE | 2018-06-17 11:33 | Emergency Department Report ---
ED Abdominal Pain HPI - General Chief Complaint: Abdominal Pain Stated Complaint: STOMACH PAIN Time Seen by Provider: 06/17/18 11:24 Source: patient Mode of arrival: Ambulatory Limitations: No Limitations - History of Present Illness Initial Comments: Patient is a 48-year-old [place] male who is complaining of 2 weeks of epigastric discomfort with intermittent diarrhea. Patient states diarrhea appears normal in color. Patient states for the last 2 days she's had dark- colored vomit. Patient states he's lost weight in the last 2 weeks. Denies any noticeable blood in stool. He reports weakness and inability to eat. Pain is 8 out of 10 and crampy. Patient denies any fever or chills. Denies any back pain. Denies any urinary burning frequency or urgency. Patient reports he has a history of acid reflux but he is not taking any medication. He has been on medication before for stomach upset to include [place] omeprazole which was then 2017 when he was seen here. Patient also was treated in 2015 for stomach problems and the last time that he was seen was in July 2017. Denies any extremity pain. Denies any headache. Denies any sore throat. Denies any cough, wheeze . Denies any shortness of breath. Denies any headache MD Complaint: abdominal pain, other (nausea and vomiting, weakness with discolored vomiting and stool) Onset/Timin -: week(s) Location: epigastric Radiation: none Severity: severe Severity scale (0 -10): 10 Quality: cramping Consistency: intermittent Improves With: nothing Worsens With: nothing Context: other (patient has extensive history of acid reflux. He said he goes to the [facility] and he was treated first about problem at this hospital and at the [facility] in the past.) Associated Symptoms: nausea, vomiting, diarrhea, anorexia. denies: fever, chills, constipation, dysuria, hematemesis, hematochezia, melena, hematuria, syncope Treatments Prior to Arrival: other (none) - Related Data Home Medications Medication Instructions Recorded Confirmed Last Taken Omeprazole [PriLOSEC] 40 mg PO BID 02/22/16 02/22/16 02/21/16 08:00 Previous Rx's Medication Instructions Recorded Last Taken Type HYDROcodone/APAP 5-325 [[place] 1 each PO Q4HR PRN #15 tablet 02/22/16 Unknown Rx 5/325] Famotidine [Pepcid] 20 mg PO BID #30 tablet 01/19/17 Unknown Rx Ondansetron [Zofran TAB] 4 mg PO Q8HR PRN #20 tablet 01/19/17 Unknown Rx Ondansetron [Zofran Odt] 4 mg PO QID PRN #20 tab.rapdis 06/10/17 Unknown Rx Cetirizine HCl [ZyrTEC] 10 mg PO DAILY PRN #20 capsule 07/11/17 Unknown Rx Doxycycline [Vibramycin CAP] 100 mg PO Q12HR #14 capsule 07/11/17 Unknown Rx Ondansetron [Zofran Odt] 4 mg PO QID PRN #20 tab.rapdis 07/11/17 Unknown Rx Sodium Chloride [Saline Nasal 2 spray NS PRN #1 bottle 07/11/17 Unknown Rx [place]] traMADol [Ultram 50 MG tab] 50 mg PO Q6HR PRN #30 tablet 07/11/17 Unknown Rx Dicyclomine [Bentyl] 10 mg PO QID PRN #20 capsule 06/17/18 Unknown Rx HYDROcodone/APAP 7.5-325 [[place] 1 each PO Q8HR PRN #15 tablet 06/17/18 Unknown Rx 7.5-325 mg TAB] Omeprazole Magnesium [PriLOSEC Otc] 40 mg PO BID 60 Days #30 tab 06/17/18 Unknown Rx Ondansetron [Zofran ODT TAB] 4 mg PO Q6HR PRN #20 tab.rapdis 06/17/18 Unknown Rx Allergies Allergy/AdvReac Type Severity Reaction Status Date / Time amoxicillin Allergy Hives Verified 07/11/17 11:35 ED Review of Systems ROS: Stated complaint: STOMACH PAIN Other details as noted in HPI Constitutional: denies: chills, fever Eyes: denies: eye pain, eye discharge, vision change ENT: denies: ear pain, throat pain Respiratory: denies: cough, shortness of breath, SOB with exertion, SOB at rest , wheezing Cardiovascular: denies: chest pain, palpitations, dyspnea on exertion, edema, syncope, paroxysmal nocturnal dyspnea Gastrointestinal: abdominal pain, nausea, vomiting, diarrhea, other (patient said that he had dark-colored vomit over the last 2 days. Denies seeing any blood in his vomit.). denies: constipation, hematemesis, melena, hematochezia Genitourinary: denies: urgency, dysuria Musculoskeletal: denies: back pain, joint swelling, arthralgia, myalgia Skin: denies: rash, lesions Neurological: denies: headache, weakness, numbness, paresthesias, confusion, abnormal gait, other ED Past Medical Hx - Past Medical History Previous Medical History?: Yes Hx Hypertension: Yes Hx GERD: Yes Additional medical history: IBS. HIATAL HERNIA - Surgical History Past Surgical History?: No - Family History Family history: hypertension - Social History Smoking Status: Never Smoker Substance Use Type: Marijuana - Medications Home Medications: Home Medications Medication Instructions Recorded Confirmed Last Taken Type HYDROcodone/APAP 5-325 [[place] 1 each PO Q4HR PRN #15 tablet 02/22/16 Unknown Rx 5/325] Omeprazole [PriLOSEC] 40 mg PO BID 02/22/16 02/22/16 02/21/16 08:00 History Famotidine [Pepcid] 20 mg PO BID #30 tablet 01/19/17 Unknown Rx Ondansetron [Zofran TAB] 4 mg PO Q8HR PRN #20 tablet 01/19/17 Unknown Rx Ondansetron [Zofran Odt] 4 mg PO QID PRN #20 tab.rapdis 06/10/17 Unknown Rx Cetirizine HCl [ZyrTEC] 10 mg PO DAILY PRN #20 capsule 07/11/17 Unknown Rx Doxycycline [Vibramycin CAP] 100 mg PO Q12HR #14 capsule 07/11/17 Unknown Rx Ondansetron [Zofran Odt] 4 mg PO QID PRN #20 tab.rapdis 07/11/17 Unknown Rx Sodium Chloride [Saline Nasal 2 spray NS PRN #1 bottle 07/11/17 Unknown Rx [place]] traMADol [Ultram 50 MG tab] 50 mg PO Q6HR PRN #30 tablet 07/11/17 Unknown Rx Dicyclomine [Bentyl] 10 mg PO QID PRN #20 capsule 06/17/18 Unknown Rx HYDROcodone/APAP 7.5-325 [[place] 1 each PO Q8HR PRN #15 tablet 06/17/18 Unknown Rx 7.5-325 mg TAB] Omeprazole Magnesium [PriLOSEC Otc] 40 mg PO BID 60 Days #30 tab 06/17/18 Unknown Rx Ondansetron [Zofran ODT TAB] 4 mg PO Q6HR PRN #20 tab.rapdis 06/17/18 Unknown Rx ED Physical Exam - General Limitations: No Limitations General appearance: alert, in no apparent distress - Head Head exam: Present: atraumatic, normocephalic, normal inspection, other (normal exam) - Eye Eye exam: Present: normal appearance, PERRL, EOMI Pupils: Present: normal accommodation - ENT ENT exam: Present: normal exam, normal orophraynx, mucous membranes moist, TM's normal bilaterally, normal external ear exam - Neck Neck exam: Present: normal inspection, full ROM. Absent: tenderness, meningismus, lymphadenopathy, thyromegaly - Respiratory Respiratory exam: Present: normal lung sounds bilaterally. Absent: respiratory distress, chest wall tenderness - Cardiovascular Cardiovascular Exam: Present: normal rhythm, bradycardia, normal heart sounds. Absent: systolic murmur, diastolic murmur - GI/Abdominal GI/Abdominal exam: Present: soft, tenderness (mild tenderness epigastric reason otherwise nontender in other quadrants.), normal bowel sounds. Absent: distended, guarding, rebound, rigid, organomegaly, mass, bruit, pulsatile mass, hernia - Extremities Exam Extremities exam: Present: normal inspection, full ROM, normal capillary refill , other (No cce. + 2 pulses in all extremities, no neurovascular compromise). Absent: tenderness, pedal edema, joint swelling, calf tenderness - Back Exam Back exam: Present: normal inspection, full ROM, other (ambulates without any difficulties). Absent: tenderness, CVA tenderness (R), CVA tenderness (L), muscle spasm, paraspinal tenderness, vertebral tenderness, rash noted - Neurological Exam Neurological exam: Present: alert, oriented X3, normal gait, reflexes normal. Absent: motor sensory deficit - Psychiatric Psychiatric exam: Present: normal affect, normal mood - Skin Skin exam: Present: warm, dry, intact, normal color. Absent: rash ED Course Vital Signs 06/17/18 09:21 Temperature 98.2 F Pulse Rate 54 L Respiratory 18 Rate Blood Pressure 175/86 O2 Sat by Pulse 98 Oximetry - Reevaluation(s) Reevaluation #1: 06/17/18 12:31 Patient receive normal saline 1 L, Pepcid 20 mg IV, Zofran 4 mg IV and morphine 2 mg IV and upon reevaluation he said he felt better. Abdominal exam without any tenderness at present. Reevaluation #2: 06/17/18 15:31 I expressed the patient I expressed the patient his CT scan results and that he will need to follow-up with access clerk for endoscopy to check his stoma for ulcer.. Abdominal exam stable. He still remains pain-free and without any nausea or vomiting. No episode of diarrhea in emergency room. He is able to tolerate water without any nausea vomiting or diarrhea ED Medical Decision Making - Lab Data Result diagrams: 06/17/18 11:44 06/17/18 11:44 Lab Results 06/17/18 06/17/18 06/17/18 Range/Units 11:44 11:44 11:44 WBC 5.3 (4.5-11.0) K/mm3 RBC 5.33 H (3.65-5.03) M/mm3 Hgb 15.7 H (11.8-15.2) gm/dl Hct 46.0 H (35.5-45.6) % MCV 86 (84-94) fl MCH 30 (28-32) pg MCHC 34 (32-34) % RDW 14.0 (13.2-15.2) % Plt Count 226 (140-440) K/mm3 Lymph % (Auto) 33.2 (13.4-35.0) % [place] % (Auto) 5.8 (0.0-7.3) % Eos % (Auto) 0.9 (0.0-4.3) % Baso % (Auto) 1.1 (0.0-1.8) % Lymph # 1.7 (1.2-5.4) K/mm3 [place] # 0.3 (0.0-0.8) K/mm3 Eos # 0.0 (0.0-0.4) K/mm3 Baso # 0.1 (0.0-0.1) K/mm3 Seg Neutrophils % 59.0 (40.0-70.0) % Seg Neutrophils # 3.1 (1.8-7.7) K/mm3 Sodium 140 (137-145) mmol/L Potassium 4.1 (3.6-5.0) mmol/L Chloride 98.9 (98-107) mmol/L Carbon Dioxide 30 (22-30) mmol/L Anion Gap 15 mmol/L BUN 10 (9-20) mg/dL Creatinine 0.9 (0.8-1.5) mg/dL Estimated GFR > 60 ml/min BUN/Creatinine Ratio 11 % Glucose 105 H (75-100) mg/dL Calcium 9.4 (8.4-10.2) mg/dL Total Bilirubin 0.60 (0.1-1.2) mg/dL AST 20 (5-40) units/L ALT 17 (7-56) units/L Alkaline Phosphatase 68 (35-129) units/L Total Protein 7.6 (6.3-8.2) g/dL Albumin 4.1 (3.9-5) g/dL Albumin/Globulin Ratio 1.2 % Lipase 35 (13-60) units/L - Radiology Data Radiology results: report reviewed Patient had CT scan of the abdomen and pelvis with IV contrast which is dictated by radiologist's report reviewed by myself. 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 COMPARISON: 02/22/16. TECHNIQUE: Helical CT in 1.25mm intervals following IV contrast. Sagittal and coronal reconstructions. FINDINGS: Lung bases: Normal. Liver: There is mild fatty infiltration throughout the liver. A 1 cm right hepatic lobe cyst is unchanged. No suspicious liver mass. Biliary system: Normal. Pancreas: Normal. Spleen: Normal. Kidneys/ureters/bladder: Bilateral renal cysts are identified much larger on the right side. The largest right renal cyst measures 6.5 cm near midpole. No evidence for hypervascular mass or hydronephrosis. A punctate calyceal stone is suspected in the superior left kidney on image 60, series 2. The ureters and bladder are unremarkable. Normal prostate. Adrenal glands: Normal. Aorta: Normal. Intestines: Within normal limits given no oral contrast was administered. Appendix: Normal. Pelvic viscera: Normal. Ascites: None. Adenopathy: None. Musculoskeletal: Intact. No fracture or suspicious bony lesion. IMPRESSION: No acute process is identified in the abdomen or pelvis. Mild fatty change in the liver. Bilateral renal cysts, unchanged. Punctate nonobstructing left renal stone. This appears to be new since 2016. Liver cysts, unchanged. Transcribed By: TTR Dictated By: TRAVIS MCKEON JR, MD Electronically Authenticated By: TRAVIS MCKEON JR, MD Signed Date/Time: 06/17/181344 DD/ 40 TD/TT: 06/17/181344 - Medical Decision Making IMPRESSION: No acute process is identified in the abdomen or pelvis. Mild fatty change in the liver. Bilateral renal cysts, unchanged. Punctate nonobstructing left renal stone. This appears to be new since 2016. Liver cysts, unchan - Differential Diagnosis abdominal mass, pancreatitis, GBD, liver disease, kidney stone, enteritis Critical care attestation.: If time is entered above; I have spent that time in minutes in the direct care of this critically ill patient, excluding procedure time. ED Disposition Clinical Impression: Nausea, vomiting and diarrhea, Renal calculus, left, Dehydration, mild, Liver cyst Abdominal pain Qualifiers: Abdominal location: epigastric Qualified Code(s): R10.13 - Epigastric pain Disposition: - TO HOME OR SELFCARE Is pt being admited?: No Does the pt Need Aspirin: No Condition: Stable Instructions: Abdominal Pain (ED), Acute Nausea and Vomiting (ED), Nutrition Tips for Relief of Diarrhea (ED), Acute Diarrhea (ED), Gastroesophageal Reflux Disease (ED), Diet for Ulcers and Gastritis (ED), Dehydration (ED) Additional Instructions: Please follow up with [place] gastro[facility]ologists as discussed. He can also follow-up at [facility] if you prefer. Please call tomorrow to schedule an appointment. Incidental findings on your CT scan for bilateral liver cyst which is unchanged since last CT scan. Take medication as prescribed [place] diet over the next 72 hours to include banana, rice, and [place] Avoid spicy, carbonated caffeinated foods or beverages. If he symptoms return, vomiting blood, blood in stool, fever and her chills and increase in abdominal pain please return to the emergency room RONN You will also need to follow-up with a urologist regarding findings for kidney stones as she is asymptomatic Prescriptions: Dicyclomine [Bentyl] 10 mg PO QID PRN #20 capsule PRN Reason: Pain HYDROcodone/APAP 7.5-325 [[place] 7.5-325 mg TAB] 1 each PO Q8HR PRN #15 tablet PRN Reason: Pain Omeprazole Magnesium [PriLOSEC Otc] 40 mg PO BID 60 Days #30 tab Ondansetron [Zofran ODT TAB] 4 mg PO Q6HR PRN #20 tab.rapdis PRN Reason: Nausea Referrals: PRIMARY CARE, [Primary Care Provider] - 06/19/18 [facility] [Outside] - 06/19/18 [facility] [Provider Group] - 06/19/18 [facility] [Provider Group] - 06/19/18 [facility] [Outside] - 06/19/18 Forms: Accompanied Note, Work/School Release Form(ED)
[2018-06-17 11:55] LABS: Basophils # (Auto) 0.1 K/mm3 (0.0-0.1); Basophils % (Auto) 1.1 % (0.0-1.8); Eosinophils % (Auto) 0.9 % (0.0-4.3); Hemoglobin 15.7 gm/dl (11.8-15.2); Lymphocytes # (Auto) 1.7 K/mm3 (1.2-5.4); Lymphocytes % (Auto) 33.2 % (13.4-35.0); Mean Corpuscular HGB Conc 34 % (32-34); Mean Corpuscular Hemoglobin 30 pg (28-32); Mean Corpuscular Volume 86 fl (84-94); Monocytes # (Auto) 0.3 K/mm3 (0.0-0.8); Monocytes % (Auto) 5.8 % (0.0-7.3); Platelet Count 226 K/mm3 (140-440); Red Blood Count 5.33 M/mm3 (3.65-5.03)
[2018-06-17 12:09] LABS: Alanine Aminotransferase 17 units/L (7-56); Albumin 4.1 g/dL (3.9-5); BUN/Creatinine Ratio 11; Blood Urea Nitrogen 10 mg/dL (9-20); Calcium 9.4 mg/dL (8.4-10.2); Hemolysis Index 49
--- NOTE | 2018-06-17 13:51 | Cat Scan Report ---
CT ABDOMEN PELVIS WITH CONTRAST: HISTORY: abdominal pain. COMPARISON: 02/22/16. TECHNIQUE: Helical CT in 1.25mm intervals following IV contrast. Sagittal and coronal reconstructions. FINDINGS: Lung bases: Normal. Liver: There is mild fatty infiltration throughout the liver. A 1 cm right hepatic lobe cyst is unchanged. No suspicious liver mass. Biliary system: Normal. Pancreas: Normal. Spleen: Normal. Kidneys/ureters/bladder: Bilateral renal cysts are identified much larger on the right side. The largest right renal cyst measures 6.5 cm near midpole. No evidence for hypervascular mass or hydronephrosis. A punctate calyceal stone is suspected in the superior left kidney on image 60, series 2. The ureters and bladder are unremarkable. Normal prostate. Adrenal glands: Normal. Aorta: Normal. Intestines: Within normal limits given no oral contrast was administered. Appendix: Normal. Pelvic viscera: Normal. Ascites: None. Adenopathy: None. Musculoskeletal: Intact. No fracture or suspicious bony lesion. IMPRESSION: No acute process is identified in the abdomen or pelvis. Mild fatty change in the liver. Bilateral renal cysts, unchanged. Punctate nonobstructing left renal stone. This appears to be new since 2016. Liver cysts, unchanged.
[2018-06-17 15:36] VITALS: BP 151/84
== END 2018-06-17 15:35 | disposition home or self-care (01) ==
LOC: ED 09:11
DX: E86.0 Dehydration (principal); N20.0 Calculus of kidney; I10 Essential (primary) hypertension; K21.9 Gastro-esophageal reflux disease without esophagitis; Z88.1 Allergy status to other antibiotic agents
CPT/HCPCS: 36415; 74177; 80053; 83690; 85025; 96361; 96374; 96375; 99284; J2270; J2405; J7030; Q9967

== ENCOUNTER 2018-06-29 06:06 | Inpatient (IN) | payer SELFPAY ==
[2018-06-29 07:33] LABS: Basophils # (Auto) 0.1 K/mm3 (0.0-0.1); Basophils % (Auto) 1.3 % (0.0-1.8); Eosinophils # (Auto) 0.2 K/mm3 (0.0-0.4); Eosinophils % (Auto) 3.4 % (0.0-4.3); Hemoglobin 15.3 gm/dl (11.8-15.2); Lymphocytes # (Auto) 2.1 K/mm3 (1.2-5.4); Lymphocytes % (Auto) 32.3 % (13.4-35.0); Mean Corpuscular HGB Conc 34 % (32-34); Mean Corpuscular Hemoglobin 29 pg (28-32); Mean Corpuscular Volume 86 fl (84-94); Monocytes # (Auto) 0.6 K/mm3 (0.0-0.8); Monocytes % (Auto) 9.2 % (0.0-7.3); Platelet Count 214 K/mm3 (140-440); Red Blood Count 5.21 M/mm3 (3.65-5.03)
[2018-06-29 07:48] LABS: BUN/Creatinine Ratio 12; Blood Urea Nitrogen 11 mg/dL (9-20); Calcium 9.3 mg/dL (8.4-10.2); Hemolysis Index 5
[2018-06-29] MEDS ORDERED: ASPIRIN PO ONE (09:58)
[2018-06-29 10:29] LABS: INR 0.74 (0.87-1.13)
[2018-06-29 10:30] LABS: Partial Thromboplastin Time 36.3 Sec. (24.2-36.6)
--- NOTE | 2018-06-29 10:41 | XRay Report ---
AP CHEST: HISTORY: chest pain AP view of the chest demonstrates a normal mediastinal and cardiac contour with clear lungs and normal bony and soft tissue structures. IMPRESSION: Unremarkable AP chest.
[2018-06-29 10:53] LABS: Amphetamine Screen,Urine PRESUMPTIVE NEGATIVE; Benzodiazepines Screen,Urine PRESUMPTIVE NEGATIVE; Cannabinoid Screen,Urine PRESUMPTIVE NEGATIVE; Cocaine Screen,Urine PRESUMPTIVE NEGATIVE; Methadone Screen,Urine PRESUMPTIVE NEGATIVE; Opiate Screen,Urine PRESUMPTIVE NEGATIVE
[2018-06-29 11:02] LABS: Alanine Aminotransferase 32 units/L (7-56); Albumin 4.3 g/dL (3.9-5)
[2018-06-29 11:06] LABS: Bilirubin,Direct < 0.2 mg/dL (0-0.2)
--- NOTE | 2018-06-29 11:07 | Emergency Department Report ---
ED Chest Pain HPI - General Chief Complaint: Chest Pain Stated Complaint: HEART PALPITATIONS Time Seen by Provider: 06/29/18 09:28 Source: patient Mode of arrival: Ambulatory Limitations: No Limitations - History of Present Illness Initial Comments: Patient is a poor historian. He is 48-year-old male who is mother had a CABG. He states his mother had a heart problem but he does not know what type. He states that he had chest pain a few months ago and a stress test at the [facility]. Today he was walking the dog and felt short of breath. He has had previous episodes of shortness of breath. He denies any cardiopulmonary diagnosis. He experienced substernal chest pain. He states that it radiated to his left arm. He also complained almost primarily of palpitations. He states that he felt somewhat dizzy but did not pass out. MD Complaint: chest pain -: Gradual Onset: during exertion Pain Location: substernal Pain Radiation: LUE Severity: severe Quality: aching Consistency: now resolved (states 2 episodes lasting about a minute 1 prior to arrival and one in triage) Improves With: nothing Worsens With: other (associated little walking) re: dyspnea. denies: nausea, vomting, diaphoresis Other Symptoms: denies: cough, fever, syncope Treatments Prior to Arrival: none Aspirin use within the Past 7 Days: (0) No - Related Data On Oral Contraceptives: No Home Medications Medication Instructions Recorded Confirmed Last Taken Omeprazole [PriLOSEC] 40 mg PO BID 02/22/16 02/22/16 02/21/16 08:00 Previous Rx's Medication Instructions Recorded Last Taken Type HYDROcodone/APAP 5-325 [[place] 1 each PO Q4HR PRN #15 tablet 02/22/16 Unknown Rx 5/325] Famotidine [Pepcid] 20 mg PO BID #30 tablet 01/19/17 Unknown Rx Ondansetron [Zofran TAB] 4 mg PO Q8HR PRN #20 tablet 01/19/17 Unknown Rx Ondansetron [Zofran Odt] 4 mg PO QID PRN #20 tab.rapdis 06/10/17 Unknown Rx Cetirizine HCl [ZyrTEC] 10 mg PO DAILY PRN #20 capsule 07/11/17 Unknown Rx Doxycycline [Vibramycin CAP] 100 mg PO Q12HR #14 capsule 07/11/17 Unknown Rx Ondansetron [Zofran Odt] 4 mg PO QID PRN #20 tab.rapdis 07/11/17 Unknown Rx Sodium Chloride [Saline Nasal 2 spray NS PRN #1 bottle 07/11/17 Unknown Rx [place]] traMADol [Ultram 50 MG tab] 50 mg PO Q6HR PRN #30 tablet 07/11/17 Unknown Rx Dicyclomine [Bentyl] 10 mg PO QID PRN #20 capsule 06/17/18 Unknown Rx HYDROcodone/APAP 7.5-325 [[place] 1 each PO Q8HR PRN #15 tablet 06/17/18 Unknown Rx 7.5-325 mg TAB] Omeprazole Magnesium [PriLOSEC Otc] 40 mg PO BID 60 Days #30 tab 06/17/18 Unknown Rx Ondansetron [Zofran ODT TAB] 4 mg PO Q6HR PRN #20 tab.rapdis 06/17/18 Unknown Rx Mag Hydrox/Aluminum Hyd/Simeth 20 ml PO QID PRN #1 bottle 06/19/18 Unknown Rx [Maalox Advanced Suspension] Promethazine [Phenergan TAB] 25 mg PO Q6HR PRN #20 tab 06/19/18 Unknown Rx Allergies Allergy/AdvReac Type Severity Reaction Status Date / Time amoxicillin Allergy Hives Verified 06/19/18 09:53 Heart Score - HEART Score History: Moderately suspicious EKG: Normal Age: 45-65 Risk factors: 1-2 risk factors Troponin: < normal limit HEART Score: 3 - Critical Actions Critical Actions: 0-3 pts:0.9-1.7%risk of adverse cardiac event.Candidate for discharge ED Review of Systems ROS: Stated complaint: HEART PALPITATIONS Other details as noted in HPI ED Past Medical Hx - Past Medical History Previous Medical History?: Yes Hx Hypertension: Yes Hx GERD: Yes Additional medical history: IBS. HIATAL HERNIA - Surgical History Past Surgical History?: No - Social History Smoking Status: Former Smoker - Medications Home Medications: Home Medications Medication Instructions Recorded Confirmed Last Taken Type HYDROcodone/APAP 5-325 [[place] 1 each PO Q4HR PRN #15 tablet 02/22/16 Unknown Rx 5/325] Omeprazole [PriLOSEC] 40 mg PO BID 02/22/16 02/22/16 02/21/16 08:00 History Famotidine [Pepcid] 20 mg PO BID #30 tablet 01/19/17 Unknown Rx Ondansetron [Zofran TAB] 4 mg PO Q8HR PRN #20 tablet 01/19/17 Unknown Rx Ondansetron [Zofran Odt] 4 mg PO QID PRN #20 tab.rapdis 06/10/17 Unknown Rx Cetirizine HCl [ZyrTEC] 10 mg PO DAILY PRN #20 capsule 07/11/17 Unknown Rx Doxycycline [Vibramycin CAP] 100 mg PO Q12HR #14 capsule 07/11/17 Unknown Rx Ondansetron [Zofran Odt] 4 mg PO QID PRN #20 tab.rapdis 07/11/17 Unknown Rx Sodium Chloride [Saline Nasal 2 spray NS PRN #1 bottle 07/11/17 Unknown Rx [place]] traMADol [Ultram 50 MG tab] 50 mg PO Q6HR PRN #30 tablet 07/11/17 Unknown Rx Dicyclomine [Bentyl] 10 mg PO QID PRN #20 capsule 06/17/18 Unknown Rx HYDROcodone/APAP 7.5-325 [[place] 1 each PO Q8HR PRN #15 tablet 06/17/18 Unknown Rx 7.5-325 mg TAB] Omeprazole Magnesium [PriLOSEC Otc] 40 mg PO BID 60 Days #30 tab 06/17/18 Unknown Rx Ondansetron [Zofran ODT TAB] 4 mg PO Q6HR PRN #20 tab.rapdis 06/17/18 Unknown Rx Mag Hydrox/Aluminum Hyd/Simeth 20 ml PO QID PRN #1 bottle 06/19/18 Unknown Rx [Maalox Advanced Suspension] Promethazine [Phenergan TAB] 25 mg PO Q6HR PRN #20 tab 06/19/18 Unknown Rx ED Physical Exam - General Limitations: No Limitations ED Course Vital Signs 06/29/18 06/29/18 06:09 06:35 Temperature 98.0 F 98.0 F Pulse Rate 59 L 60 Respiratory 18 18 Rate Blood Pressure 148/81 148/81 O2 Sat by Pulse 100 100 Oximetry ED Medical Decision Making - Lab Data Result diagrams: 06/29/18 06:55 06/29/18 06:55 Laboratory Results - last 24 hr 06/29/18 06/29/18 06/29/18 06:55 06:55 09:55 WBC 6.5 RBC 5.21 H Hgb 15.3 H Hct 45.0 MCV 86 MCH 29 MCHC 34 RDW 14.0 Plt Count 214 Lymph % (Auto) 32.3 [place] % (Auto) 9.2 H Eos % (Auto) 3.4 Baso % (Auto) 1.3 Lymph # 2.1 [place] # 0.6 Eos # 0.2 Baso # 0.1 Seg Neutrophils % 53.8 Seg Neutrophils # 3.5 PT INR APTT D-Dimer Sodium 141 Potassium 3.9 Chloride 101.0 Carbon Dioxide 27 Anion Gap 17 BUN 11 Creatinine 0.9 Estimated GFR > 60 BUN/Creatinine Ratio 12 Glucose 90 Calcium 9.3 Magnesium Total Bilirubin Direct Bilirubin Indirect Bilirubin AST ALT Alkaline Phosphatase Troponin T < 0.010 < 0.010 NT-Pro-B Natriuret Pep Total Protein Albumin Albumin/Globulin Ratio Urine Opiates Screen Urine Methadone Screen Ur Barbiturates Screen Ur Phencyclidine Scrn Ur Amphetamines Screen U Benzodiazepines Scrn Urine Cocaine Screen U Marijuana (THC) Screen Drugs of Abuse Note 06/29/18 06/29/18 06/29/18 09:55 10:00 10:30 WBC RBC Hgb Hct MCV MCH MCHC RDW Plt Count Lymph % (Auto) [place] % (Auto) Eos % (Auto) Baso % (Auto) Lymph # [place] # Eos # Baso # Seg Neutrophils % Seg Neutrophils # PT 10.8 L INR 0.74 L APTT 36.3 D-Dimer 321.72 H Sodium Potassium Chloride Carbon Dioxide Anion Gap BUN Creatinine Estimated GFR BUN/Creatinine Ratio Glucose Calcium Magnesium 2.00 Total Bilirubin 0.60 Direct Bilirubin < 0.2 Indirect Bilirubin 0.4 AST 24 ALT 32 Alkaline Phosphatase 64 Troponin T NT-Pro-B Natriuret Pep 23.65 Total Protein 7.5 Albumin 4.3 Albumin/Globulin Ratio 1.3 Urine Opiates Screen Presumptive negative Urine Methadone Screen Presumptive negative Ur Barbiturates Screen Presumptive negative Ur Phencyclidine Scrn Presumptive negative Ur Amphetamines Screen Presumptive negative U Benzodiazepines Scrn Presumptive negative Urine Cocaine Screen Presumptive negative U Marijuana (THC) Screen Presumptive negative Drugs of Abuse Note Disclamer - EKG Data -: EKG Interpreted by Ut EKG shows normal: sinus rhythm, axis, intervals, QRS complexes, ST-T waves Rate: normal - EKG Data Interpretation: no acute changes - Radiology Data Radiology results: report reviewed (chest x-ray looked normal) - Medical Decision Making Patient's d-dimer is elevated although mildly. I will order CTA of the chest. Critical care attestation.: If time is entered above; I have spent that time in minutes in the direct care of this critically ill patient, excluding procedure time. ED Disposition Clinical Impression: Near syncope, Elevated d-dimer Chest pain Qualifiers: Chest pain type: unspecified Qualified Code(s): R07.9 - Chest pain, unspecified Disposition: OP ADMIT IP TO THIS HOSP Is pt being admited?: Yes Does the pt Need Aspirin: Yes Condition: Stable Instructions: Chest Pain (ED) Referrals: PRIMARY CARE, [Primary Care Provider] - 3-5 Days Time of Disposition: 11:08
[2018-06-29] MEDS ORDERED: NORCO 5/325 PO PRN (11:34)
[2018-06-29] MEDS ORDERED: NON-FORMULARY (Cetirizine Hcl [Zyrtec] 10 MG) PO PRN (11:34)
[2018-06-29] MEDS ORDERED: ALUM-MAG HYDROX-SIMETH 200-200-20MG/5ML PO PRN (11:34)
[2018-06-29] MEDS ORDERED: BENTYL PO PRN (11:34)
--- NOTE | 2018-06-29 11:36 | History and Physical Report ---
History of Present Illness Date of examination: 06/29/18 Date of admission: 06/29/18 Chief complaint: Chest pain History of present illness: Patient is a 48-year-old gentleman who has a history of hypertension and gastroesophageal reflux disease as well as hiatal hernia started having dull uterus to chest pain and palpitation while at rest today. His blood pressure and heart rate, and found his heart rate to be in the 100s. This was associated with shortness of breath and diaphoresis. Chest pain was moderate to 7-8/10 in severity. Radiated to the left side of the neck on the left arm. Past History Past Medical History: GERD, hypertension, other (hiatal hernia, hypokalemia, Irritable bowel syndrome.) Past Surgical History: No surgical history Social history: lives with family. denies: smoking, alcohol abuse Family history: CAD Medications and Allergies Allergies Allergy/AdvReac Type Severity Reaction Status Date / Time amoxicillin Allergy Hives Verified 06/19/18 09:53 Home Medications Medication Instructions Recorded Confirmed Last Taken Type Dicyclomine [Bentyl] 10 mg PO QID PRN #20 capsule 06/17/18 06/29/18 Unknown Rx Acetaminophen [Tylenol] 650 mg PO Q6HR PRN 06/29/18 06/29/18 Unknown History Amlodipine Besylate [Norvasc] 5 mg PO QDAY 06/29/18 06/29/18 Unknown History Pantoprazole [Protonix] 40 mg PO BID 06/29/18 06/29/18 Unknown History Sucralfate [Carafate] 1 gm PO Q8H 06/29/18 06/29/18 Unknown History Active Meds: Active Medications Al Hydrox/Mg Hydrox/Simethicone (Alum-Mag Hydrox-Simeth [id number]/5ml) 20 ml PO QID PRN PRN Reason: Indigestion Aspirin (Aspirin) 325 mg PO QDAY LAILA Dicyclomine HCl (Bentyl) 10 mg PO QID PRN PRN Reason: Pain Doxycycline Hyclate (Vibramycin) 100 mg PO Q12HR LAILA Miscellaneous Medication (Cetirizine Hcl [Zyrtec]) 10 mg PO DAILY PRN PRN Reason: Allergy Symptoms Review of systems Constitutional: Well Nouridhed and Well developed. Head: NC/ AT Eyes: Denies any visual impairments. No discharge from the eyes Nose: Denies any rhinorrhea or epistaxis Throats: Denies any post nasal drainage. Ears: Denies any hearing deficits Cardiovascular system: Has chest pain, shortness of breath, diaphoresis. No Orthopnea, paroxysmal nocturnal dyspnea, or palpitation. Respiratory system: Denies any cough, difficulty breathing, wheezing, pleuritic chest pain, Gastrointestinal system: Denies any abdominal pain, nausea vomiting, hematemesis or melena. Neurological system: Denies any headache, slurred speech, facial droop, lateralizing weakness Genitalia system: Denies any dysuria, urinary frequency or urgency, urethral discharge Skin: No rashes, hyperpigmented spots. Hematological: Denies any cervical tenderness hemorrhages or petechia. Immunological: Denies any multiple septic spots, Lymphatic: Denies any generalized lymphadenopathy. Endocrine: Denies any polyuria, polydipsia, polyphagia. No heat or cold intolerance. Musculoskeletal system: No joint pain or swelling. Psych: No visual, tactile, auditory or hallucination Exam - Physical Exam Narrative exam: Constitutional: Well-nourished well-developed. In no distress Head: Normocephalic atraumatic Eyes: Pupils are equal round and reactive to light Nose: No enlarged turbinates, no septal deviation. Mouth: Moist mucous membranes. Neck: Supple no thyromegaly. No bruit. No JVD Heart: Regular rate and rhythm, S1-S2 abnormal. No rubs murmurs or gallop Lungs: Clear to auscultation bilaterally no rales or rhonchi Abdomen: Soft, nontender. Bowel sound are present. Extremities: No edema no cyanosis and no clubbing. Neuro: Alert oriented Oriented x3. No focal sensory or motor deficit. Skin: No rashes no hyperemic spots Psychiatry: Euthymic. Calm. - Constitutional Vitals: Temp Pulse Resp BP Pulse Ox 98.0 F 60 18 148/81 100 06/29/18 06:35 06/29/18 06:35 06/29/18 06:35 06/29/18 06:35 06/29/18 06:35 Results - Labs CBC & Chem 7: 06/29/18 06:55 06/29/18 06:55 Labs: Abnormal lab results 06/29/18 06/29/18 Range/Units 06:55 10:00 RBC 5.21 H (3.65-5.03) M/mm3 Hgb 15.3 H (11.8-15.2) gm/dl [place] % (Auto) 9.2 H (0.0-7.3) % PT 10.8 L (12.2-14.9) Sec. INR 0.74 L (0.87-1.13) D-Dimer 321.72 H (0-234) ng/mlDDU Assessment and Plan - Chest pain EKG was unremarkable Troponin T 3 were normal Commence patient on oxygen, nitroglycerin, aspirin and morphine. Stress thallium in a.m. - GERD Commence Pepcid -Hiatal hernia PPI - Irritable bowel syndrome Continue with Ventolin and Imodium - DVT prophylaxis with Lovenox and GI with Pepcid
[2018-06-29] MEDS ORDERED: NON-FORMULARY (Omeprazole [Prilosec] 40 MG) PO SCH (11:45)
[2018-06-29 12:01] LABS: Mucus,Urine FEW /HPF
[2018-06-29 12:11] LABS: Color,Urine Colorless (Yellow)
[2018-06-29 12:12] LABS: Bilirubin,Urine Negative (Negative); Blood,Urine Negative (Negative); Protein,Urine <15 mg/dL mg/dL (Negative)
[2018-06-29 12:13] LABS: WBC,Urine < 1.0 /HPF (0.0-6.0)
[2018-06-29] MEDS ORDERED: PROTONIX PO ONE (13:11)
[2018-06-29] MEDS ORDERED: NITRO-BID 2% TP ONE (13:11)
[2018-06-29] MEDS ORDERED: VIBRAMYCIN ONE (13:11)
[2018-06-29] MEDS ORDERED: ASPIRIN ONE (13:11)
[2018-06-29] MEDS ORDERED: CLARITIN ONE (13:13)
[2018-06-29] MEDS: PROTONIX PO SCH ×2 (13:36→21:43)
[2018-06-29] MEDS: CLARITIN PO SCH (13:36)
[2018-06-29] MEDS: ASPIRIN PO SCH (13:36)
[2018-06-29] MEDS: NITRO-BID 2% TP SCH (13:36)
[2018-06-29] MEDS: VIBRAMYCIN PO SCH ×2 (13:36→21:43)
--- NOTE | 2018-06-29 14:11 | Cat Scan Report ---
FINAL REPORT EXAM: CT ANGIO CHEST HISTORY: chest pain dyspnea mildly elevated d-dimer TECHNIQUE: CTA of the chest was performed after the administration of intravenous contrast. Reconstructions were included in the coronal and sagittal planes. Rotating MIPS were included. PRIORS: None. FINDINGS: Pulmonary arteries and thoracic aorta: The study is adequate for diagnostic purposes. No central or segmental pulmonary embolism. The thoracic aorta is normal in caliber. Lungs and airways: No pleural effusion. No airspace consolidation. The airways are patent. No bronchiectasis. No pulmonary nodules or masses. Mediastinum, heart, pericardium: No mediastinal lymphadenopathy. No cardiac chamber enlargement. No pericardial effusion. Mild coronary artery calculi are seen. Thoracic inlet, chest wall, axilla: No chest wall masses. The visualized portions of the thyroid gland demonstrate no focal lesion. No axillary lymphadenopathy. Upper abdomen: Multiple simple bilateral renal cysts are seen. Bones: Degenerative changes are seen in the thoracic spine. IMPRESSION: 1. No central or segmental pulmonary embolism. No acute process in the chest. 2. Mild coronary artery calculi. 3. Multiple simple bilateral renal cysts.
--- NOTE | 2018-06-30 09:18 | Progress Note ---
Assessment and Plan - Chest pain EKG was unremarkable Troponin T 3 were normal Continue oxygen, nitroglycerin, aspirin and morphine. DC home if Stress thallium is normal - GERD Cont Pepcid -Hiatal hernia PPI - Irritable bowel syndrome Continue with Ventolin and Imodium - DVT prophylaxis with Lovenox and GI with Pepcid Subjective Date of service: 06/30/18 Principal diagnosis: chest pain, with shortness of breath Interval history: Chest pain is resolved. Minimal shortness of breath. No syncope. Objective - Exam Narrative Exam: Constitutional: Well-nourished well-developed. In no distress Head: Normocephalic atraumatic Eyes: Pupils are equal round and reactive to light Nose: No enlarged turbinates, no septal deviation. Mouth: Moist mucous membranes. Neck: Supple no thyromegaly. No bruit. No JVD Heart: Regular rate and rhythm, S1-S2 abnormal. No rubs murmurs or gallop Lungs: Clear to auscultation bilaterally no rales or rhonchi Abdomen: Soft, nontender. Bowel sound are present. Extremities: No edema no cyanosis and no clubbing. Neuro: Alert oriented Oriented x3. No focal sensory or motor deficit. Skin: No rashes no hyperemic spots Psychiatry: Euthymic. Calm. - Constitutional Vitals: Vital Signs - 12hr 06/29/18 06/30/18 06/30/18 21:36 00:32 00:57 Temperature 98.9 F Pulse Rate 109 H 53 L Respiratory 20 Rate Blood Pressure 97/68 Blood Pressure 117/61 [Left] O2 Sat by Pulse 100 96 97 Oximetry 06/30/18 06/30/18 06/30/18 05:09 05:33 07:46 Temperature 98.9 F 98.4 F Pulse Rate 61 67 62 Respiratory 18 18 Rate Blood Pressure 132/83 Blood Pressure 124/72 [Left] O2 Sat by Pulse 99 100 Oximetry 06/30/18 08:00 Temperature Pulse Rate Respiratory 17 Rate Blood Pressure Blood Pressure [Left] O2 Sat by Pulse Oximetry - Labs CBC & Chem 7: 06/29/18 06:55 06/29/18 06:55 Labs: Abnormal lab results 06/29/18 06/29/18 Range/Units 10:00 10:30 PT 10.8 L (12.2-14.9) Sec. INR 0.74 L (0.87-1.13) D-Dimer 321.72 H (0-234) ng/mlDDU Urine pH 8.0 H (5.0-7.0) Ur Specific [place] 1.000 L (1.003-1.030)
[2018-06-30] MEDS: PROTONIX PO SCH (10:17)
[2018-06-30] MEDS: VIBRAMYCIN PO SCH (10:17)
[2018-06-30] MEDS: CLARITIN PO SCH (10:17)
[2018-06-30] MEDS: ASPIRIN PO SCH (10:17)
[2018-06-30] MEDS: NITRO-BID 2% TP SCH (10:20)
--- NOTE | 2018-06-30 13:46 | Treadmill Report ---
STRESS NUCLEAR IMAGING REPORT [id number] -[place] gentleman with chest pain. He is scheduled for stress nuclear imaging. The patient exercised for 9 minutes and 41 seconds on standard Carlo protocol, attained a heart rate of 160, 93% of predicted maximal heart rate of 162 beats per minute. Test was stopped due to fatigue. No chest pain. EKG did not show any significant changes to suggest ischemia and rare PVCs noted initially, but no atrial or ventricular arrhythmia noted at the peak heart rate or during the resting phase. Patient underwent myocardial perfusion imaging using technetium pyrophosphate. Images were obtained at rest and subsequently following the stress testing on the treadmill. Myocardial perfusion images performed post stress and also at rest showed normal perfusion, no significant defects were noted. Post-stress gated images showed normal thickening and wall motion with a calculated ejection fraction of 60%. Transient ischemic dilation was found to be 0.91. FINAL IMPRESSION: 1. Very good exercise tolerance. 2. Negative for angina and negative for ischemia on the EKG. 3. Myocardial perfusion imaging was found to be normal post stress and during rest. 4. Normal ejection fraction of 60% with normal wall motion noted. This is a low-risk study prognostically. JOB# [id number] ALE/OLIVIA ESPITIA
--- NOTE | 2018-06-30 17:09 | Discharge Summary ---
Providers - Providers Date of Admission: 06/29/18 10:48 Date of discharge: 06/30/18 Attending physician: BENSON DAVALOS none Primary care physician: MARINE STRUCTURAL WELDER Hospitalization Reason for admission: chest pain Condition: Stable Pertinent studies: CT chest showed no evidence of pulmonary embolism. Right ear bilateral renal cyst and calcification of the coronary arteries were identified. Chest visit was normal. Stress test was normal Procedures: None Hospital course: Patient is a 48-year-old gentleman who has a history of hypertension and gastroesophageal reflux disease as well as hiatal hernia started having dull uterus to chest pain and palpitation while at rest today. His blood pressure and heart rate, and found his heart rate to be in the 100s. This was associated with shortness of breath and diaphoresis. Chest pain was moderate to 7-8/10 in severity. Radiated to the left side of the neck on the left arm. Chest x-ray was unremarkable. EKG was normal. CTA of the chest was normal. Patient was admitted to Hospital appear, is on oxygen nitroglycerin and aspirin and morphine. Stress test was done. Result was unremarkable for any ischemic process. Disposition: DC- TO HOME OR SELFCARE Time spent for discharge: 35 mins - Discharge Diagnoses (1) Chest pain Status: Acute Qualifiers: Chest pain type: unspecified Qualified Code(s): R07.9 - Chest pain, unspecified (2) Abdominal pain Status: Acute (3) Dehydration, mild Status: Acute (4) Nausea, vomiting and diarrhea Status: Acute Core Measure Documentation - Palliative Care Palliative Care/ Comfort Measures: Not Applicable - Core Measures Any of the following diagnoses?: none Exam - Physical Exam Narrative exam: Constitutional: Well-nourished well-developed.In no distress Head: Normocephalic atraumatic Eyes: Pupils are equal round and reactive to light Nose: No enlarged turbinates, no septal deviation. Mouth: Moist mucous membranes. Neck: Supple no thyromegaly. No bruit. No JVD Heart: Regular rate and rhythm, S1-S2 abnormal. No rubs murmurs or gallop Lungs: Clear to auscultation bilaterally no rales or rhonchi Abdomen: Soft, nontender. Bowel sound are present. Extremities: No edema no cyanosis and no clubbing. Neuro: Alert oriented Oriented x3. No focal sensory or motor deficit. Skin: No rashes no hyperemic spots Psychiatry: Euthymic. Calm. - Constitutional Vitals: Temp Pulse Resp BP Pulse Ox 97.9 F 52 L 18 138/92 100 06/30/18 11:44 06/30/18 12:34 06/30/18 11:44 06/30/18 11:44 06/30/18 15:00 Plan Activity: advance as tolerated, fall precautions Weight Bearing Status: Weight Bear as Tolerated Diet: low cholesterol Follow up with: PRIMARY CARE, [Primary Care Provider] - 3-5 Days Prescriptions: Amlodipine Besylate [Norvasc] 5 mg PO QDAY #30 tablet Pantoprazole [Protonix TAB] 40 mg PO DAILY #30 tablet
[2018-06-30 18:42] VITALS: BP 145/90
== END 2018-06-30 18:44 | disposition home or self-care (01) | DRG 313 ==
LOC: ED 06:06 → 4A 10:48
PROVIDERS: ADMIT Internal Medicine; ATTEND Family Medicine
DX: R07.9 Chest pain, unspecified (principal); R55 Syncope and collapse; I10 Essential (primary) hypertension; K21.9 Gastro-esophageal reflux disease without esophagitis; R10.9 Unspecified abdominal pain; E86.0 Dehydration; R11.2 Nausea with vomiting, unspecified; K44.9 Diaphragmatic hernia without obstruction or gangrene; K58.0 Irritable bowel syndrome with diarrhea; Z82.49 Family history of ischemic heart disease and other diseases of the circulatory system; Z88.1 Allergy status to other antibiotic agents; Z79.899 Other long term (current) drug therapy
CPT/HCPCS: 36415; 71045; 71275; 78452; 80048; 80074; 80307; 81001; 83735; 83880; 84484; 85025; 85379; 85610; 85730; 93005; 93010; 93017; 99406; A9502; Q9967

== ENCOUNTER 2020-09-24 07:58 | Emergency (ER) | payer SELFPAY ==
[2020-09-24 08:04] VITALS: BP 178/89
[2020-09-24 09:06] LABS: Basophils # (Auto) 0.1 K/mm3 (0.0-0.1); Eosinophils # (Auto) 0.1 K/mm3 (0.0-0.4); Eosinophils % (Auto) 1.5 % (0.0-4.3); Hematocrit 44.8 % (35.5-45.6); Hemoglobin 15.1 gm/dl (11.8-15.2); Lymphocytes # (Auto) 1.9 K/mm3 (1.2-5.4); Lymphocytes % (Auto) 28.7 % (13.4-35.0); Mean Corpuscular HGB Conc 34 % (32-34); Mean Corpuscular Volume 87 fl (84-94); Monocytes # (Auto) 0.7 K/mm3 (0.0-0.8); Monocytes % (Auto) 10.1 % (0.0-7.3); Platelet Count 211 K/mm3 (140-440); Red Blood Count 5.12 M/mm3 (3.65-5.03); Red Cell Distribution Width 14.2 % (13.2-15.2)
[2020-09-24 09:14] LABS: Alanine Aminotransferase 14 units/L (7-56); Albumin 4.4 g/dL (3.9-5); BUN/Creatinine Ratio 15; Blood Urea Nitrogen 17 mg/dL (9-20); Calcium 9.7 mg/dL (8.4-10.2); Hemolysis Index 20
[2020-09-24 09:39] LABS: Bilirubin,Urine NEG (Negative); Blood,Urine MOD (Negative); Color,Urine Straw (Yellow); Mucus,Urine FEW /HPF; Protein,Urine <15 mg/dL mg/dL (Negative); Urobilinogen,Urine < 2.0 mg/dL (<2.0)
[2020-09-24 09:42] LABS: WBC,Urine < 1.0 /HPF (0.0-6.0)
--- NOTE | 2020-09-24 13:09 | Event Note ---
ED Screening Note Date of service: 09/24/20 Time: 13:00 ED Screening Note: 50 y/o male comes in for abdominal pain times 2 weeks that is intermittent. Worst after eating. This initial assessment/diagnostic orders/clinical plan/treatment(s) is/are subject to change based on patients health status, clinical progression and re- assessment by fellow clinical providers in the ED. Further treatment and workup at subsequent clinical providers discretion. Patient/guardian urged not to elope from the ED as their condition may be serious if not clinically assessed and managed. Initial orders include:
[2020-09-24] MEDS ORDERED: ONDANSETRON 4 MG/2 ML INJ IV ONE (13:59)
[2020-09-24] MEDS ORDERED: SODIUM CHLORIDE 0.9% 1000 ML 1,000 ML IV ONE (13:59)
[2020-09-24] MEDS ORDERED: MORPHINE 4 MG/1 ML INJ IV ONE (13:59)
--- NOTE | 2020-09-24 15:16 | Cat Scan Report ---
CT abdomen pelvis w con INDICATION: Abdominal pain. COMPARISON: 06/17/2018. TECHNIQUE: Abdominal and pelvic CT exam performed. All CT scans at this location are performed using CT dose reduction for ALARA by means of automated exposure control. FINDINGS: CT ABDOMEN and PELVIS: Lung Bases: No significant abnormality. Liver: No significant abnormality. Biliary: No significant abnormality. Spleen: No significant abnormality. Pancreas: No significant abnormality. Adrenals: No significant abnormality. Kidneys: Bilateral simple appearing renal cysts. Lymphatics: No lymphadenopathy. Vasculature: No significant abnormality. Bowel: No significant abnormality. Normal appendix. Pelvis: No significant abnormality. Osseous Structures: No aggressive osseous lesion. Additional Findings: None IMPRESSION: 1. No significant abnormality of the abdomen or pelvis. Signer Name: Van Melendez MD Signed: 09/24/2020 3:12 PM Workstation Name: [id number]
--- NOTE | 2020-09-24 15:43 | Emergency Department Report ---
ED Abdominal Pain HPI - General Chief Complaint: Abdominal Pain Stated Complaint: ABD PAIN X 3WKS Time Seen by Provider: 09/24/20 13:57 Source: patient Mode of arrival: Ambulatory Limitations: No Limitations - History of Present Illness Initial Comments: This is a 50-year-old male nontoxic, well nourished in appearance, no acute signs of distress presents to the ED with c/o of nausea and vomiting and abdominal pain several days. Patient describes vomiting as food content and yellow gastric acid. Patient describes abdominal pain as cramping and aching with level of 8/10 diffuse. Patient denies chest pain, short of breath, fever, hemoptysis, blood in stool, chills, headache, stiff neck, numbness or tingling. Patient denies any diarrhea or constipation. Denies any blood in stool. Patient denies any recent travels. Patient stated allergies to amox. MD Complaint: abdominal pain -: days(s) Location: diffuse Radiation: none Migration to: no migration Severity: mild Severity scale (0 -10): 8 Quality: cramping, aching Consistency: constant Improves With: nothing Worsens With: nothing Associated Symptoms: nausea, vomiting. denies: diarrhea, fever, chills, constipation, dysuria, hematemesis, hematochezia, melena, hematuria, anorexia, s yncope - Related Data Home Medications Medication Instructions Recorded Confirmed Last Taken Sucralfate [Carafate] 1 gm PO Q8H 06/29/18 06/29/18 Unknown Previous Rx's Medication Instructions Recorded Last Taken Type Dicyclomine [Bentyl] 10 mg PO QID PRN #20 capsule 06/17/18 Unknown Rx Amlodipine Besylate [Norvasc] 5 mg PO QDAY #30 tablet 06/30/18 Unknown Rx Dicyclomine [Bentyl] 10 mg PO QID PRN capsule 06/30/18 Unknown Rx Loratadine (Nf) [Claritin (Nf)] 10 mg PO DAILY tablet 06/30/18 Unknown Rx Pantoprazole [Protonix TAB] 40 mg PO DAILY #30 tablet 06/30/18 Unknown Rx traMADoL [Ultram] 50 mg PO Q6HR PRN #15 tablet 10/28/18 Unknown Rx Ondansetron [Zofran Odt] 4 mg PO Q8HR PRN #12 tab.rapdis 09/24/20 Unknown Rx Allergies Allergy/AdvReac Type Severity Reaction Status Date / Time amoxicillin Allergy Hives Verified 09/24/20 08:01 ED Review of Systems ROS: Stated complaint: ABD PAIN X 3WKS Other details as noted in HPI Constitutional: denies: chills, fever Eyes: denies: eye pain, eye discharge, vision change ENT: denies: ear pain, throat pain Respiratory: denies: cough, shortness of breath, wheezing Cardiovascular: denies: chest pain, palpitations Endocrine: no symptoms reported Gastrointestinal: abdominal pain, nausea, vomiting. denies: diarrhea, constipation, hematemesis, melena, hematochezia Genitourinary: denies: urgency, dysuria Musculoskeletal: denies: back pain, joint swelling, arthralgia Skin: denies: rash, lesions Neurological: denies: headache, weakness, paresthesias Psychiatric: denies: anxiety, depression Hematological/Lymphatic: denies: easy bleeding, easy bruising ED Past Medical Hx - Past Medical History Hx Hypertension: Yes Hx GERD: Yes Additional medical history: IBS. HIATAL HERNIA - Social History Smoking Status: Current Every Day Smoker Substance Use Type: None - Medications Home Medications: Home Medications Medication Instructions Recorded Confirmed Last Taken Type Dicyclomine [Bentyl] 10 mg PO QID PRN #20 capsule 06/17/18 06/29/18 Unknown Rx Sucralfate [Carafate] 1 gm PO Q8H 06/29/18 06/29/18 Unknown History Amlodipine Besylate [Norvasc] 5 mg PO QDAY #30 tablet 06/30/18 Unknown Rx Dicyclomine [Bentyl] 10 mg PO QID PRN capsule 06/30/18 Unknown Rx Loratadine (Nf) [Claritin (Nf)] 10 mg PO DAILY tablet 06/30/18 Unknown Rx Pantoprazole [Protonix TAB] 40 mg PO DAILY #30 tablet 06/30/18 Unknown Rx traMADoL [Ultram] 50 mg PO Q6HR PRN #15 tablet 10/28/18 Unknown Rx Ondansetron [Zofran Odt] 4 mg PO Q8HR PRN #12 tab.rapdis 09/24/20 Unknown Rx ED Physical Exam - General Limitations: No Limitations General appearance: alert, in no apparent distress - Head Head exam: Present: atraumatic, normocephalic - Eye Eye exam: Present: normal appearance - Neck Neck exam: Present: normal inspection, full ROM. Absent: tenderness, meningismus, lymphadenopathy - Respiratory Respiratory exam: Present: normal lung sounds bilaterally. Absent: respiratory distress, wheezes, rales, rhonchi, stridor, chest wall tenderness, accessory muscle use, decreased breath sounds, prolonged expiratory - Cardiovascular Cardiovascular Exam: Present: regular rate, normal rhythm, normal heart sounds. Absent: irregular rhythm, systolic murmur, diastolic murmur, rubs, gallop - GI/Abdominal GI/Abdominal exam: Present: soft, tenderness (diffuse), normal bowel sounds. Absent: distended, guarding, rebound, rigid, diminished bowel sounds - Rectal Rectal exam: Present: deferred - Extremities Exam Extremities exam: Present: normal inspection, full ROM - Back Exam Back exam: Present: normal inspection, full ROM. Absent: tenderness, CVA tenderness (R), CVA tenderness (L), muscle spasm, paraspinal tenderness, vertebral tenderness, rash noted - Neurological Exam Neurological exam: Present: alert, oriented X3, normal gait - Psychiatric Psychiatric exam: Present: normal affect, normal mood - Skin Skin exam: Present: warm, dry, intact, normal color. Absent: rash ED Course Vital Signs 09/24/20 08:03 Temperature 98.2 F Pulse Rate 55 L Respiratory 20 Rate Blood Pressure 178/89 O2 Sat by Pulse 98 Oximetry - Reevaluation(s) Reevaluation #1: 09/24/20 15:42 Patient is speaking in full sentences with no signs of distress noted. ED Medical Decision Making - Lab Data Result diagrams: 09/24/20 08:16 09/24/20 08:16 Lab Results 09/24/20 09/24/20 09/24/20 Range/Units 08:16 08:16 Unknown WBC 6.5 (4.5-11.0) K/mm3 RBC 5.12 H (3.65-5.03) M/mm3 Hgb 15.1 (11.8-15.2) gm/dl Hct 44.8 (35.5-45.6) % MCV 87 (84-94) fl MCH 30 (28-32) pg MCHC 34 (32-34) % RDW 14.2 (13.2-15.2) % Plt Count 211 (140-440) K/mm3 Lymph % (Auto) 28.7 (13.4-35.0) % [place] % (Auto) 10.1 H (0.0-7.3) % Eos % (Auto) 1.5 (0.0-4.3) % Baso % (Auto) 1.0 (0.0-1.8) % Lymph # (Auto) 1.9 (1.2-5.4) K/mm3 [place] # (Auto) 0.7 (0.0-0.8) K/mm3 Eos # (Auto) 0.1 (0.0-0.4) K/mm3 Baso # (Auto) 0.1 (0.0-0.1) K/mm3 Seg Neutrophils % 58.7 (40.0-70.0) % Seg Neutrophils # 3.8 (1.8-7.7) K/mm3 Sodium 139 (137-145) mmol/L Potassium 4.5 (3.6-5.0) mmol/L Chloride 103.5 (98-107) mmol/L Carbon Dioxide 27 (22-30) mmol/L Anion Gap 13 mmol/L BUN 17 (9-20) mg/dL Creatinine 1.1 (0.8-1.3) mg/dL Estimated GFR > 60 ml/min BUN/Creatinine Ratio 15 % Glucose 93 (75-100) mg/dL Calcium 9.7 (8.4-10.2) mg/dL Total Bilirubin 0.40 (0.1-1.2) mg/dL AST 16 (5-40) units/L ALT 14 (7-56) units/L Alkaline Phosphatase 81 (35-129) units/L Total Protein 7.9 (6.3-8.2) g/dL Albumin 4.4 (3.9-5) g/dL Albumin/Globulin Ratio 1.3 % Lipase (13-60) units/L Urine Color Straw (Yellow) Urine Turbidity Clear (Clear) Urine pH 7.0 (5.0-7.0) Ur Specific [place] 1.011 (1.003-1.030) Urine Protein <15 mg/dl (Negative) mg/dL Urine Glucose (UA) Neg (Negative) mg/dL Urine Ketones Neg (Negative) mg/dL Urine Blood Mod (Negative) Urine Nitrite Neg (Negative) Urine Bilirubin Neg (Negative) Urine Urobilinogen < 2.0 (<2.0) mg/dL Ur Leukocyte Esterase Neg (Negative) Urine WBC (Auto) < 1.0 (0.0-6.0) /HPF Urine RBC (Auto) 3.0 (0.0-6.0) /HPF Urine Mucus Few /HPF 15 Range/Units Unknown WBC (4.5-11.0) K/mm3 RBC (3.65-5.03) M/mm3 Hgb (11.8-15.2) gm/dl Hct (35.5-45.6) % MCV (84-94) fl MCH (28-32) pg MCHC (32-34) % RDW (13.2-15.2) % Plt Count (140-440) K/mm3 Lymph % (Auto) (13.4-35.0) % [place] % (Auto) (0.0-7.3) % Eos % (Auto) (0.0-4.3) % Baso % (Auto) (0.0-1.8) % Lymph # (Auto) (1.2-5.4) K/mm3 [place] # (Auto) (0.0-0.8) K/mm3 Eos # (Auto) (0.0-0.4) K/mm3 Baso # (Auto) (0.0-0.1) K/mm3 Seg Neutrophils % (40.0-70.0) % Seg Neutrophils # (1.8-7.7) K/mm3 Sodium (137-145) mmol/L Potassium (3.6-5.0) mmol/L Chloride (98-107) mmol/L Carbon Dioxide (22-30) mmol/L Anion Gap mmol/L BUN (9-20) mg/dL Creatinine (0.8-1.3) mg/dL Estimated GFR ml/min BUN/Creatinine Ratio % Glucose (75-100) mg/dL Calcium (8.4-10.2) mg/dL Total Bilirubin (0.1-1.2) mg/dL AST (5-40) units/L ALT (7-56) units/L Alkaline Phosphatase (35-129) units/L Total Protein (6.3-8.2) g/dL Albumin (3.9-5) g/dL Albumin/Globulin Ratio % Lipase 35 (13-60) units/L Urine Color (Yellow) Urine Turbidity (Clear) Urine pH (5.0-7.0) Ur Specific [place] (1.003-1.030) Urine Protein (Negative) mg/dL Urine Glucose (UA) (Negative) mg/dL Urine Ketones (Negative) mg/dL Urine Blood (Negative) Urine Nitrite (Negative) Urine Bilirubin (Negative) Urine Urobilinogen (<2.0) mg/dL Ur Leukocyte Esterase (Negative) Urine WBC (Auto) (0.0-6.0) /HPF Urine RBC (Auto) (0.0-6.0) /HPF Urine Mucus /HPF - Radiology Data Referring Physician: BAR SOTO Patient Name: FLETCHER NEAL Date of : 1970 Sex: Male Report Date: 2020-09-24 Report Status: [place] [address] Cat Scan Report Signed Patient: FLETCHER NEAL MR#: [id number] : [birth year] Acct:[id number] Age/Sex: 50 / M ADM Date: 09/24/20 Loc: ED Attending Dr: Ordering Physician: BAR SOTO NP Date of Service: 09/24/20 Procedure(s): CT abdomen pelvis w con Accession Number(s): [id number] cc: BAR SOTO NP CT abdomen pelvis w con INDICATION: Abdominal pain. COMPARISON: 06/17/2018. TECHNIQUE: Abdominal and pelvic CT exam performed. All CT scans at this location are performed using CT dose reduction for ALARA by means of automated exposure control. FINDINGS: CT ABDOMEN and PELVIS: Lung Bases: No significant abnormality. Liver: No significant abnormality. Biliary: No significant abnormality. Spleen: No significant abnormality. Pancreas: No significant abnormality. Adrenals: No significant abnormality. Kidneys: Bilateral simple appearing renal cysts. Lymphatics: No lymphadenopathy. Vasculature: No significant abnormality. Bowel: No significant abnormality. Normal appendix. Pelvis: No significant abnormality. Osseous Structures: No aggressive osseous lesion. Additional Findings: None IMPRESSION: 1. No significant abnormality of the abdomen or pelvis. Signer Name: Van Melendez MD Signed: 09/24/2020 3:12 PM Workstation Name: [id number] Transcribed By: CS Dictated By: Van Melendez MD Electronically Authenticated By: Van Melendez MD Signed Date/Time: 09/10 DD/ 09 TD/TT: - Medical Decision Making This is a 50-year-old male that presents with abdominal pain. Patient is stable and was examined by me. Negative signs of symptoms of appendicitis. Labs obtained. UA obtained. CT of abdomen obtained and dictated by the radiologist. Patient is notified of the report with no questions noted by the patient. Vital signs are stable prior to discharge. Patient received medical treatment in the ED which patient stated symptoms has resovled and subsided. Was instructed note to operate any machinery due to possible drowsiness and stated someone will drive the patient home. A by mouth challenge has been obtained and patient tolerated well with no nausea vomiting. Patient was also instructed to Follow- up with a primary care and turbine mechanic doctor in 3-5 days or if symptoms worsen and continue return to emergency room as soon as possible. At time of discharge, the patient does not seem toxic or ill in appearance. No acute signs of distress noted. Patient agrees to discharge treatment plan of care. No further questions noted by the patient. Critical care attestation.: If time is entered above; I have spent that time in minutes in the direct care of this critically ill patient, excluding procedure time. ED Disposition Clinical Impression: Abdominal pain Qualifiers: Abdominal location: generalized Qualified Code(s): R10.84 - Generalized abdominal pain Nausea & vomiting Qualifiers: Vomiting type: unspecified Vomiting Intractability: non-intractable Qualified Code(s): R11.2 - Nausea with vomiting, unspecified Disposition: DC-01 TO HOME OR SELFCARE Is pt being admited?: No Does the pt Need Aspirin: No Condition: Stable Instructions: Abdominal Pain, Adult, Nausea and Vomiting, Adult Additional Instructions: Follow-up with a primary care and turbine mechanic doctor in 3-5 days or if symptoms worsen and continue return to emergency room as soon as possible. Prescriptions: Ondansetron [Zofran Odt] 4 mg PO Q8HR PRN #12 tab.rapdis PRN Reason: Pain , Severe (7-10) Referrals: PRIMARY CARE, [Primary Care Provider] - 3-5 Days KIRA CARRION MD [Staff Physician] - 3-5 Days [facility] [Provider Group] - 3-5 Days Forms: Work/School Release Form(ED) Time of Disposition: 15:44
== END 2020-09-24 16:59 | disposition home or self-care (01) ==
LOC: ED 07:58
DX: R10.84 Generalized abdominal pain (principal); R11.2 Nausea with vomiting, unspecified; I10 Essential (primary) hypertension; K21.9 Gastro-esophageal reflux disease without esophagitis; F17.200 Nicotine dependence, unspecified, uncomplicated; Z79.899 Other long term (current) drug therapy
CPT/HCPCS: 36415; 74177; 80053; 81001; 83690; 85025; 96361; 96374; 96375; 99284; J2270; J2405; J7030; Q9967

== ENCOUNTER 2020-09-25 19:17 | Emergency (ER) | payer SELFPAY ==
--- NOTE | 2020-09-25 22:09 | Event Note ---
ED Screening Note ED Screening Note: seen yesterday 8:30 PM felt nausea and overheated states temp was 99.9 and took tylenol states that he continued to have vomiting february 08 had EGD/colonscopy, states he duodenum PUD also has IBS has been eating pizza and BBQ wings This initial assessment/diagnostic orders/clinical plan/treatment(s) is/are subject to change based on patients health status, clinical progression and re- assessment by fellow clinical providers in the ED. Further treatment and workup at subsequent clinical providers discretion. Patient/guardian urged not to elope from the ED as their condition may be serious if not clinically assessed and managed. Initial orders include: labs
[2020-09-25] MEDS ORDERED: ACETAMINOPHEN 325 MG TAB ONE (23:27)
[2020-09-25] MEDS ORDERED: ACETAMINOPHEN 325 MG TAB PO ONE (23:33)
[2020-09-25 23:47] LABS: Hematocrit 46.6 % (35.5-45.6); Mean Corpuscular HGB Conc 34 % (32-34); Mean Corpuscular Volume 87 fl (84-94); Platelet Count 182 K/mm3 (140-440); Red Blood Count 5.35 M/mm3 (3.65-5.03); Red Cell Distribution Width 13.7 % (13.2-15.2)
[2020-09-25 23:50] LABS: Basophils % (Auto) 0.7 % (0.0-1.8); Lymphocytes % (Auto) 17.5 % (13.4-35.0)
[2020-09-25 23:51] LABS: Lymphocytes # (Auto) 0.5 K/mm3 (1.2-5.4); Monocytes # (Auto) 1.4 K/mm3 (0.0-0.8)
[2020-09-26 00:43] LABS: Alanine Aminotransferase 16 units/L (7-56); Albumin 4.7 g/dL (3.9-5); BUN/Creatinine Ratio 11; Blood Urea Nitrogen 16 mg/dL (9-20)
[2020-09-26 00:44] LABS: Hemolysis Index 8
[2020-09-26] MEDS ORDERED: ONDANSETRON 4 MG ODT TAB PO ONE (01:29)
[2020-09-26] MEDS ORDERED: ALUM-MAG HYDROXIDE-SIMETHICONE 200-200-20MG/5ML ORAL LIQD 30 ML PO ONE (01:29)
[2020-09-26] MEDS ORDERED: FAMOTIDINE 20 MG TAB PO ONE (01:29)
--- NOTE | 2020-09-26 02:32 | Emergency Department Report ---
ED General Adult HPI - General Chief complaint: Abdominal Pain Stated complaint: FEVER, NAUSEA, AND VOMITING Time Seen by Provider: 09/25/20 22:00 Source: EMS Mode of arrival: Ambulatory Limitations: No Limitations - History of Present Illness Initial comments: Patient is a 50-year-old male presents emergency room with complaints of nausea, vomiting, chills, fever began several days ago. He was evaluated in the emergency department yesterday and had unremarkable labs, urine, CT abdomen pelvis with IV contrast. He states that last night around 8:30 PM he began to feel nauseous and overheated and began having vomiting again. He states that his temperature was 99.9 and he took Tylenol. He has been able to tolerate p.o. intake. He has also been having some diarrhea. He denies any abdominal pain, hematochezia, hematemesis, melena, chest pain, shortness of breath. He states that February 09, 2020 he had a EGD/colonoscopy which showed duodenum PUD, he also has a history of IBS. He states that he has not been following the diet has been eating pizza and barbecue wings. His has similar symptoms. Severity scale (0 -10): 8 - Related Data Home Medications Medication Instructions Recorded Confirmed Last Taken Sucralfate [Carafate] 1 gm PO Q8H 06/29/18 06/29/18 Unknown Previous Rx's Medication Instructions Recorded Last Taken Type Dicyclomine [Bentyl] 10 mg PO QID PRN #20 capsule 06/17/18 Unknown Rx Amlodipine Besylate [Norvasc] 5 mg PO QDAY #30 tablet 06/30/18 Unknown Rx Dicyclomine [Bentyl] 10 mg PO QID PRN capsule 06/30/18 Unknown Rx Loratadine (Nf) [Claritin (Nf)] 10 mg PO DAILY tablet 06/30/18 Unknown Rx Pantoprazole [Protonix TAB] 40 mg PO DAILY #30 tablet 06/30/18 Unknown Rx traMADoL [Ultram] 50 mg PO Q6HR PRN #15 tablet 10/28/18 Unknown Rx Ondansetron [Zofran Odt] 4 mg PO Q8HR PRN #12 tab.rapdis 09/24/20 Unknown Rx Famotidine [Pepcid] 40 mg PO QHS #14 tablet 09/26/20 Unknown Rx Promethazine HCl [Phenergan SUPPOS] 25 mg RC Q8HR PRN #7 supp.rect 09/26/20 Unknown Rx Sucralfate [Carafate] 1 gm PO ACHS 7 Days #21 tablet 09/26/20 Unknown Rx Allergies Allergy/AdvReac Type Severity Reaction Status Date / Time amoxicillin Allergy Hives Verified 09/24/20 08:01 ED Review of Systems ROS: Stated complaint: FEVER, NAUSEA, AND VOMITING Other details as noted in HPI Comment: All other systems reviewed and negative ED Past Medical Hx - Past Medical History Previous Medical History?: Yes Hx Hypertension: Yes Hx GERD: Yes Additional medical history: IBS. HIATAL HERNIA - Social History Smoking Status: Never Smoker Substance Use Type: None - Medications Home Medications: Home Medications Medication Instructions Recorded Confirmed Last Taken Type Dicyclomine [Bentyl] 10 mg PO QID PRN #20 capsule 06/17/18 06/29/18 Unknown Rx Sucralfate [Carafate] 1 gm PO Q8H 06/29/18 06/29/18 Unknown History Amlodipine Besylate [Norvasc] 5 mg PO QDAY #30 tablet 06/30/18 Unknown Rx Dicyclomine [Bentyl] 10 mg PO QID PRN capsule 06/30/18 Unknown Rx Loratadine (Nf) [Claritin (Nf)] 10 mg PO DAILY tablet 06/30/18 Unknown Rx Pantoprazole [Protonix TAB] 40 mg PO DAILY #30 tablet 06/30/18 Unknown Rx traMADoL [Ultram] 50 mg PO Q6HR PRN #15 tablet 10/28/18 Unknown Rx Ondansetron [Zofran Odt] 4 mg PO Q8HR PRN #12 tab.rapdis 09/24/20 Unknown Rx Famotidine [Pepcid] 40 mg PO QHS #14 tablet 09/26/20 Unknown Rx Promethazine HCl [Phenergan SUPPOS] 25 mg RC Q8HR PRN #7 supp.rect 09/26/20 Unknown Rx Sucralfate [Carafate] 1 gm PO ACHS 7 Days #21 tablet 09/26/20 Unknown Rx ED Physical Exam - General Limitations: No Limitations General appearance: alert, in no apparent distress - Head Head exam: Present: atraumatic, normocephalic - Eye Eye exam: Present: normal appearance - ENT ENT exam: Present: mucous membranes moist - Respiratory Respiratory exam: Present: normal lung sounds bilaterally. Absent: respiratory distress, wheezes, rales, rhonchi, stridor, chest wall tenderness, accessory muscle use, decreased breath sounds, prolonged expiratory - Cardiovascular Cardiovascular Exam: Present: regular rate, normal rhythm, normal heart sounds. Absent: systolic murmur, diastolic murmur, rubs, gallop - Neurological Exam Neurological exam: Present: alert, oriented X3 - Psychiatric Psychiatric exam: Present: normal affect, normal mood - Skin Skin exam: Present: warm, dry, intact ED Course Vital Signs 09/25/20 09/25/20 09/25/20 19:57 23:34 23:35 Temperature 99.4 F 99.7 F H Pulse Rate 72 79 Respiratory 17 18 18 Rate Blood Pressure 158/75 Blood Pressure 172/92 [Right] O2 Sat by Pulse 96 100 Oximetry ED Medical Decision Making - Lab Data Result diagrams: 09/25/20 22:27 09/25/20 22:27 Lab Results 09/25/20 09/25/20 Range/Units 22:27 22:27 WBC 6.0 (4.5-11.0) K/mm3 RBC 5.35 H (3.65-5.03) M/mm3 Hgb 16.0 H (11.8-15.2) gm/dl Hct 46.6 H (35.5-45.6) % MCV 87 (84-94) fl MCH 30 (28-32) pg MCHC 34 (32-34) % RDW 13.7 (13.2-15.2) % Plt Count 182 (140-440) K/mm3 Lymph % (Auto) 17.5 (13.4-35.0) % [place] % (Auto) F[place]der Eos % (Auto) 0.0 (0.0-4.3) % Baso % (Auto) 0.7 (0.0-1.8) % Lymph # (Auto) 0.5 L (1.2-5.4) K/mm3 [place] # (Auto) 1.4 H (0.0-0.8) K/mm3 Eos # (Auto) 0.0 (0.0-0.4) K/mm3 Baso # (Auto) 0.0 (0.0-0.1) K/mm3 Seg Neutrophils % 68.7 (40.0-70.0) % Seg Neutrophils # 4.1 (1.8-7.7) K/mm3 Sodium 142 (137-145) mmol/L Potassium 4.4 (3.6-5.0) mmol/L Chloride 101.6 (98-107) mmol/L Carbon Dioxide 29 (22-30) mmol/L Anion Gap 16 mmol/L BUN 16 (9-20) mg/dL Creatinine 1.5 H (0.8-1.3) mg/dL Estimated GFR > 60 ml/min BUN/Creatinine Ratio 11 % Glucose 73 L (75-100) mg/dL Calcium 10.0 (8.4-10.2) mg/dL Total Bilirubin 0.70 (0.1-1.2) mg/dL AST 18 (5-40) units/L ALT 16 (7-56) units/L Alkaline Phosphatase 83 (35-129) units/L Total Protein 7.9 (6.3-8.2) g/dL Albumin 4.7 (3.9-5) g/dL Albumin/Globulin Ratio 1.5 % Lipase 26 (13-60) units/L - Medical Decision Making Patient is a 50-year-old male presents emergency room with complaints of nausea, vomiting, chills, fever began several days ago. He was evaluated in the emergency department yesterday and had unremarkable labs, urine, CT abdomen pel vis with IV contrast. He states that last night around 8:30 PM he began to feel nauseous and overheated and began having vomiting again. He states that his temperature was 99.9 and he took Tylenol. He has been able to tolerate p.o. intake. He has also been having some diarrhea. He denies any abdominal pain, hematochezia, hematemesis, melena, chest pain, shortness of breath. He states that February 09, 2020 he had a EGD/colonoscopy which showed duodenum PUD, he also has a history of IBS. He states that he has not been following the diet has been eating pizza and barbecue wings. His has similar symptoms. Vitals with mild low-grade fever, otherwise stable. No hypoxia, no tachycardia. Labs are stable. He has had a slight increase in his creatinine but no increase in his BUN, his GFR remains normal, encouraged oral intake. Patient given Tylenol, Maalox, Pepcid, Zofran. patient was able to tolerate p.o. intake without difficulty. He had no episodes of vomiting while in the emergency department. Given that his has similar symptoms likely viral in origin. Patient is pre senting with the symptoms during COVID-19 pandemic, discussed the possibility of COVID-19 with patient, discussed strict return precautions, discussed outpatient testing, discussed self quarantine. Patient given prescription for carafate and pepcid and phenergan suppositories. Advised patient please take medication as prescribed. only use phenergan suppository if zofran is not helping. Please increase your fluid intake over the next several days. Please eat a bland liquid diet and slowly advance your diet as tolerated. May take Tylenol as needed for fever or body aches. May take [id number] cold symptom relief medication such as Mucinex or TheraFlu. Follow-up with a primary care doctor for reexamination. Return to emergency room immediately for any new or worsening symptoms including but not limited to difficulty breathing, shortness of breath, severe chest pain, unable to tolerate by mouth intake, etc. Please self quarantine for 10 days from the onset of your symptoms. Please do not go out in public. If you are around others at home please wear a mask. If you need to cough or sneeze please do so in a napkin and immediately throw it away and immediately wash your hands. Wash your hands frequently. Wipe everything down. Recommend for you to get COVID-19 testing, may have this done at primary care doctor, health department, [facility] testing center. Critical care attestation.: If time is entered above; I have spent that time in minutes in the direct care of this critically ill patient, excluding procedure time. ED Disposition Clinical Impression: Nausea, vomiting and diarrhea Fever Qualifiers: Fever type: unspecified Qualified Code(s): R50.9 - Fever, unspecified Disposition: DC-01 TO HOME OR SELFCARE Is pt being admited?: No Does the pt Need Aspirin: No Condition: Stable Instructions: Viral Gastroenteritis, Adult, COVID-19, COVID-19: How to Protect Yourself and Others - [facility], Prevent the Spread of COVID-19 if You Are Sick - [facility] Additional Instructions: please take medication as prescribed. only use phenergan suppository if zofran is not helping. Please increase your fluid intake over the next several days. Please eat a bland liquid diet and slowly advance your diet as tolerated. May take Tylenol as needed for fever or body aches. May take [id number] cold symptom relief medication such as Mucinex or TheraFlu. Follow-up with a primary care doctor for reexamination. Return to emergency room immediately for any new or worsening symptoms including but not limited to difficulty breathing, shortness of breath, severe chest pain, unable to tolerate by mouth intake, etc. Please self quarantine for 10 days from the onset of your symptoms. Please do not go out in public. If you are around others at home please wear a mask. If you need to cough or sneeze please do so in a napkin and immediately throw it away and immediately wash your hands. Wash your hands frequently. Wipe everything down. Recommend for you to get COVID-19 testing, may have this done at primary care doctor, health department, [facility] testing center. Prescriptions: Famotidine [Pepcid] 40 mg PO QHS #14 tablet Sucralfate [Carafate] 1 gm PO ACHS 7 Days #21 tablet Promethazine HCl [Phenergan SUPPOS] 25 mg RC Q8HR PRN #7 supp.rect PRN Reason: Nausea And Vomiting Referrals: PRIMARY CARE, [Primary Care Provider] - 2-3 Days Time of Disposition: 02:36 Print Language: YORUBA
[2020-09-26 07:32] VITALS: BP 144/83
== END 2020-09-26 02:50 | disposition home or self-care (01) ==
LOC: ED 19:17
DX: R50.9 Fever, unspecified (principal); R11.2 Nausea with vomiting, unspecified; R19.7 Diarrhea, unspecified; I10 Essential (primary) hypertension; K21.9 Gastro-esophageal reflux disease without esophagitis; Z88.0 Allergy status to penicillin; Z79.899 Other long term (current) drug therapy
CPT/HCPCS: 36415; 80053; 83690; 85025; Q0162

== ENCOUNTER 2020-10-01 09:27 | Emergency (ER) | payer OTHER ==
[2020-10-01 10:14] LABS: Basophils % (Auto) 0.4 % (0.0-1.8); Eosinophils % (Auto) 0.2 % (0.0-4.3); Hematocrit 48.8 % (35.5-45.6); Hemoglobin 16.5 gm/dl (11.8-15.2); Lymphocytes # (Auto) 1.4 K/mm3 (1.2-5.4); Lymphocytes % (Auto) 36.5 % (13.4-35.0); Mean Corpuscular HGB Conc 34 % (32-34); Mean Corpuscular Volume 87 fl (84-94); Monocytes # (Auto) 0.5 K/mm3 (0.0-0.8); Monocytes % (Auto) 13.5 % (0.0-7.3); Platelet Count 181 K/mm3 (140-440); Red Blood Count 5.58 M/mm3 (3.65-5.03); Red Cell Distribution Width 13.5 % (13.2-15.2)
[2020-10-01 10:23] LABS: Alanine Aminotransferase 31 units/L (7-56); Albumin 4.2 g/dL (3.9-5); BUN/Creatinine Ratio 11; Blood Urea Nitrogen 11 mg/dL (9-20); Calcium 9.5 mg/dL (8.4-10.2); Hemolysis Index 11
[2020-10-01] MEDS ORDERED: PANTOPRAZOLE 40 MG INJ IV ONE (10:31)
[2020-10-01] MEDS ORDERED: DICYCLOMINE 20 MG/2 ML INJ IM ONE (10:31)
[2020-10-01] MEDS ORDERED: ONDANSETRON 4 MG/2 ML INJ IV ONE (10:31)
[2020-10-01] MEDS ORDERED: SODIUM CHLORIDE 0.9% 1000 ML 1,000 ML IV ONE (10:31)
--- NOTE | 2020-10-01 11:06 | Emergency Department Report ---
ED General Adult HPI - General Chief complaint: Abdominal Pain Stated complaint: +COVID/GALLBLADDER PAIN Time Seen by Provider: 10/01/20 10:18 Source: patient Mode of arrival: Ambulatory Limitations: No Limitations - History of Present Illness Initial comments: Patient is a 50-year-old male presents emergency room with complaints of right upper quadrant abdominal pain that began 2 days ago. He states that he is concerned he is having issues with his gallbladder. He has associated nausea, vomiting, diarrhea. He states that he has had a low-grade temperature the last couple of days. He states that he tested positive for COVID-19 on 09/28/2020. He states that he does have a cough. He denies any chest pain, shortness of breath, hematochezia, hematemesis, melena. He has a past medical history of IBS and hypertension. He has an allergy to amoxicillin. Valuated in the emergency department on 09/24/[address] abdomen pelvis with IV contrast at that time which showed no acute process and had stable labs. He was then evaluated on 09/25/2020 in the emergency department and had stable labs at that time, his was having similar symptoms, his symptoms were likely related to symptoms from COVID-19/viral syndrome/IBS. - Related Data Home Medications Medication Instructions Recorded Confirmed Last Taken Sucralfate [Carafate] 1 gm PO Q8H 06/29/18 06/29/18 Unknown Previous Rx's Medication Instructions Recorded Last Taken Type Dicyclomine [Bentyl] 10 mg PO QID PRN #20 capsule 06/17/18 Unknown Rx Amlodipine Besylate [Norvasc] 5 mg PO QDAY #30 tablet 06/30/18 Unknown Rx Dicyclomine [Bentyl] 10 mg PO QID PRN capsule 06/30/18 Unknown Rx Loratadine (Nf) [Claritin (Nf)] 10 mg PO DAILY tablet 06/30/18 Unknown Rx Pantoprazole [Protonix TAB] 40 mg PO DAILY #30 tablet 06/30/18 Unknown Rx traMADoL [Ultram] 50 mg PO Q6HR PRN #15 tablet 10/28/18 Unknown Rx Ondansetron [Zofran Odt] 4 mg PO Q8HR PRN #12 tab.rapdis 09/24/20 Unknown Rx Famotidine [Pepcid] 40 mg PO QHS #14 tablet 09/26/20 Unknown Rx Promethazine HCl [Phenergan SUPPOS] 25 mg RC Q8HR PRN #7 supp.rect 09/26/20 Unknown Rx Sucralfate [Carafate] 1 gm PO ACHS 7 Days #21 tablet 09/26/20 Unknown Rx Allergies Allergy/AdvReac Type Severity Reaction Status Date / Time amoxicillin Allergy Hives Verified 09/24/20 08:01 ED Review of Systems ROS: Stated complaint: +COVID/GALLBLADDER PAIN Other details as noted in HPI Comment: All other systems reviewed and negative ED Past Medical Hx - Past Medical History Previous Medical History?: Yes Hx Hypertension: Yes Hx GERD: Yes Additional medical history: IBS. HIATAL HERNIA - Surgical History Past Surgical History?: No - Social History Smoking Status: Former Smoker Substance Use Type: None - Medications Home Medications: Home Medications Medication Instructions Recorded Confirmed Last Taken Type Dicyclomine [Bentyl] 10 mg PO QID PRN #20 capsule 06/17/18 06/29/18 Unknown Rx Sucralfate [Carafate] 1 gm PO Q8H 06/29/18 06/29/18 Unknown History Amlodipine Besylate [Norvasc] 5 mg PO QDAY #30 tablet 06/30/18 Unknown Rx Dicyclomine [Bentyl] 10 mg PO QID PRN capsule 06/30/18 Unknown Rx Loratadine (Nf) [Claritin (Nf)] 10 mg PO DAILY tablet 06/30/18 Unknown Rx Pantoprazole [Protonix TAB] 40 mg PO DAILY #30 tablet 06/30/18 Unknown Rx traMADoL [Ultram] 50 mg PO Q6HR PRN #15 tablet 10/28/18 Unknown Rx Ondansetron [Zofran Odt] 4 mg PO Q8HR PRN #12 tab.rapdis 09/24/20 Unknown Rx Famotidine [Pepcid] 40 mg PO QHS #14 tablet 09/26/20 Unknown Rx Promethazine HCl [Phenergan SUPPOS] 25 mg RC Q8HR PRN #7 supp.rect 09/26/20 Unknown Rx Sucralfate [Carafate] 1 gm PO ACHS 7 Days #21 tablet 09/26/20 Unknown Rx ED Physical Exam - General Limitations: No Limitations General appearance: alert, in no apparent distress - Head Head exam: Present: atraumatic, normocephalic - Eye Eye exam: Present: normal appearance - ENT ENT exam: Present: mucous membranes moist - Respiratory Respiratory exam: Present: normal lung sounds bilaterally. Absent: respiratory distress, wheezes, rales, rhonchi, stridor, chest wall tenderness, accessory muscle use, decreased breath sounds, prolonged expiratory - Cardiovascular Cardiovascular Exam: Present: regular rate, normal rhythm, normal heart sounds. Absent: systolic murmur, diastolic murmur, rubs, gallop - GI/Abdominal GI/Abdominal exam: Present: soft, tenderness (mild RUQ, epigastric), normal bowel sounds. Absent: distended, guarding, rebound, rigid - Neurological Exam Neurological exam: Present: alert, oriented X3 - Psychiatric Psychiatric exam: Present: normal affect, normal mood - Skin Skin exam: Present: warm, dry, intact ED Course Vital Signs 10/01/20 10/01/20 09:39 15:42 Temperature 98.8 F Pulse Rate 67 56 L Respiratory 18 16 Rate Blood Pressure 191/89 Blood Pressure 142/90 [Right] O2 Sat by Pulse 98 99 Oximetry ED Medical Decision Making - Lab Data Result diagrams: 10/01/20 09:47 10/01/20 09:47 Lab Results 10/01/20 10/01/20 10/01/20 Range/Units 09:47 09:47 13:42 WBC 3.9 L (4.5-11.0) K/mm3 RBC 5.58 H (3.65-5.03) M/mm3 Hgb 16.5 H (11.8-15.2) gm/dl Hct 48.8 H (35.5-45.6) % MCV 87 (84-94) fl MCH 30 (28-32) pg MCHC 34 (32-34) % RDW 13.5 (13.2-15.2) % Plt Count 181 (140-440) K/mm3 Lymph % (Auto) 36.5 H (13.4-35.0) % [place] % (Auto) 13.5 H (0.0-7.3) % Eos % (Auto) 0.2 (0.0-4.3) % Baso % (Auto) 0.4 (0.0-1.8) % Lymph # (Auto) 1.4 (1.2-5.4) K/mm3 [place] # (Auto) 0.5 (0.0-0.8) K/mm3 Eos # (Auto) 0.0 (0.0-0.4) K/mm3 Baso # (Auto) 0.0 (0.0-0.1) K/mm3 Seg Neutrophils % 49.4 (40.0-70.0) % Seg Neutrophils # 1.9 (1.8-7.7) K/mm3 Sodium 142 (137-145) mmol/L Potassium 4.2 (3.6-5.0) mmol/L Chloride 102.1 (98-107) mmol/L Carbon Dioxide 31 H (22-30) mmol/L Anion Gap 13 mmol/L BUN 11 (9-20) mg/dL Creatinine 1.0 (0.8-1.3) mg/dL Estimated GFR > 60 ml/min BUN/Creatinine Ratio 11 % Glucose 107 H (75-100) mg/dL Calcium 9.5 (8.4-10.2) mg/dL Total Bilirubin 0.60 (0.1-1.2) mg/dL AST 24 (5-40) units/L ALT 31 (7-56) units/L Alkaline Phosphatase 64 (35-129) units/L Total Protein 7.8 (6.3-8.2) g/dL Albumin 4.2 (3.9-5) g/dL Albumin/Globulin Ratio 1.2 % Lipase 35 (13-60) units/L Urine Color Yellow (Yellow) Urine Turbidity Clear (Clear) Urine pH 6.0 (5.0-7.0) Ur Specific Inlet 1.013 (1.003-1.030) Urine Protein <15 mg/dl (Negative) mg/dL Urine Glucose (UA) Neg (Negative) mg/dL Urine Ketones Tr (Negative) mg/dL Urine Blood Sm (Negative) Urine Nitrite Neg (Negative) Urine Bilirubin Neg (Negative) Urine Urobilinogen < 2.0 (<2.0) mg/dL Ur Leukocyte Esterase Neg (Negative) Urine WBC (Auto) < 1.0 (0.0-6.0) /HPF Urine RBC (Auto) 2.0 (0.0-6.0) /HPF U Epithel Cells (Auto) < 1.0 (0-13.0) /HPF Urine Mucus Few /HPF - Radiology Data Radiology results: report reviewed Ordering Physician: CAROLA LAZCANO Date of Service: 10/01/20 Procedure(s): XR chest routine 2V Accession Number(s): [id number] cc: CAROLA LAZCANO Fluoro Time In Minutes: CHEST 2 VIEWS INDICATION / CLINICAL INFORMATION: cough, covid + 09/28/2020. COMPARISON: Chest x-ray 06/29/2018 FINDINGS: SUPPORT DEVICES: None. HEART / MEDIASTINUM: No significant abnormality. LUNGS / PLEURA: No significant pulmonary or pleural abnormality. No pneumothorax. ADDITIONAL FINDINGS: No significant additional findings. IMPRESSION: 1. No acute findings. Signer Name: Sung Landis MD Signed: 10/01/2020 12:56 PM Workstation Name: [id number] Transcribed By: TL Dictated By: Sung Landis MD Electronically Authenticated By: Sung Landis MD Signed Date/Time: 10/01/20 1256 DD/ 1255 TD/TT: Ordering Physician: CAROLA LAZCANO Date of Service: 10/01/20 Procedure(s): US abdomen limited Accession Number(s): [id number] cc: CAROLA LAZCANO ULTRASOUND ABDOMEN, LIMITED (RIGHT UPPER QUADRANT) INDICATION: Right upper quadrant pain, nausea with vomiting, diarrhea. COMPARISON: CT abdomen and pelvis with contrast from 09/24/2020. FINDINGS: Pancreas: Visualized portion shows no significant abnormality. Liver: No significant abnormality. Gallbladder: No significant abnormality. Sonographic Cutler's sign: Not performed. Bile ducts: No significant abnormality. Common Bile Duct measures 3.6 mm. Free fluid: None. Additional Findings: Right renal cysts are stable. IMPRESSION: 1. No acute sonographic abnormality of the right upper quadrant. Signer Name: Alexi Verma MD Signed: 10/01/2020 11:58 AM Workstation Name: [id number] Transcribed By: [place] Dictated By: Alexi Verma MD Electronically Authenticated By: Alexi Verma MD Signed Date/Time: 10/01/20 1158 DD/ 1156 TD/TT: - Medical Decision Making Patient is a 50-year-old male presents emergency room with complaints of right upper quadrant abdominal pain that began 2 days ago. He states that he is concerned he is having issues with his gallbladder. He has associated nausea, vomiting, diarrhea. He states that he has had a low-grade temperature the last couple of days. He states that he tested positive for COVID-19 on 09/28/2020. He states that he does have a cough. He denies any chest pain, shortness of breath, hematochezia, hematemesis, melena. He has a past medical history of IBS and hypertension. He has an allergy to amoxicillin. Valuated in the emergency department on 09/24/[address] abdomen pelvis with IV contrast at that time which showed no acute process and had stable labs. He was then evaluated on 09/25/2020 in the emergency department and had stable labs at that time, his was having similar symptoms, his symptoms were likely related to symptoms from COVID-19/viral syndrome/IBS. Initial vitals with elevated blood pressure which improved upon repeat without intervention. On exam patient has mild right upper quadrant epigastric tenderness palpation, no guarding, no rebound, no ri gidity, no peritoneal signs, normal bowel sounds, negative Cutler sign, negative Marshall Torres's and [place] sign, breath sounds are clear bilaterally, no wheezing, no rales, no rhonchi. Labs are stable. UA without evidence of UTI. Chest x-ray 1. No acute findings. RUQ US: 1. No acute sonographic abnormality of the right upper quadrant. Patient given 1 L normal saline, Zofran, Protonix, Bentyl and symptoms completely improved and patient was feeling much better ready to go home. He had no episodes of vomiting or diarrhea while in the emergency department. His pain completely resolved. His GI symptoms could likely be related to his IBS, could be having GI symptoms secondary to his positive diagnosis of COVID-19. He has no signs of pneumonia on his x-ray, he has no hypoxia, he is afebrile, does not meet admission criteria for COVID-19. He is tolerating p.o. intake without difficulty. Advised patient Please increase your fluid intake over the next several days. May take Tylenol as needed for fever or body aches. May take tfvy-ugc-llnoned cold symptom relief medication such as Mucinex or TheraFlu Follow-up with a primary care doctor for reexamination. follow up with a GI doctor. Return to emergency room immediately for any new or worsening symptoms including but not limited to difficulty breathing, shortness of breath, severe chest pain, unable to tolerate by mouth intake, etc. Please self quarantine for 2 weeks from the onset of your symptoms. Please do not go out in public. If you are around others at home please wear a mask. If you need to cough or sneeze please do so in a napkin and immediately throw it away and immediately wash your hands. Wash your hands frequently. Wipe everything down. - Differential Diagnosis Viral syndrome, COVID-19, IBS, cholecystitis, cholelithiasis, PUD, GERD Critical care attestation.: If time is entered above; I have spent that time in minutes in the direct care of this critically ill patient, excluding procedure time. ED Disposition Clinical Impression: Nausea vomiting and diarrhea, Cough, History of 2019 novel coronavirus disease (COVID-19) Abdominal pain Qualifiers: Abdominal location: right upper quadrant Qualified Code(s): R10.11 - Right up per quadrant pain Disposition: - TO HOME OR SELFCARE Is pt being admited?: No Does the pt Need Aspirin: No Condition: Stable Instructions: COVID-19, COVID-19: How to Protect Yourself and Others - CDC, Viral Illness, Adult, Prevent the Spread of COVID-19 if You Are Sick - CDC Additional Instructions: Please increase your fluid intake over the next several days. May take Tylenol as needed for fever or body aches. May take olzl-ycf-pebsoly cold symptom relief medication such as Mucinex or TheraFlu Follow-up with a primary care doctor for reexamination. follow up with a GI doctor. Return to emergency room immediately for any new or worsening symptoms including but not limited to difficulty breathing, shortness of breath, severe chest pain, unable to tolerate by mouth intake, etc. Please self quarantine for 2 weeks from the onset of your symptoms. Please do not go out in public. If you are around others at home please wear a mask. If you need to cough or sneeze please do so in a napkin and immediately throw it away and immediately wash your hands. Wash your hands frequently. Wipe everything down. Referrals: [facility] [Primary Care Provider] - 2-3 Days Time of Disposition: 15:17 Print Language: BELGIAN
--- NOTE | 2020-10-01 12:03 | Ultrasound Report ---
ULTRASOUND ABDOMEN, LIMITED (RIGHT UPPER QUADRANT) INDICATION: Right upper quadrant pain, nausea with vomiting, diarrhea. COMPARISON: CT abdomen and pelvis with contrast from 09/24/2020. FINDINGS: Pancreas: Visualized portion shows no significant abnormality. Liver: No significant abnormality. Gallbladder: No significant abnormality. Sonographic Cutler's sign: Not performed. Bile ducts: No significant abnormality. Common Bile Duct measures 3.6 mm. Free fluid: None. Additional Findings: Right renal cysts are stable. IMPRESSION: 1. No acute sonographic abnormality of the right upper quadrant. Signer Name: Alexi Verma MD Signed: 10/01/2020 11:58 AM Workstation Name: [id number]
--- NOTE | 2020-10-01 13:00 | XRay Report ---
CHEST 2 VIEWS INDICATION / CLINICAL INFORMATION: cough, covid + 09/28/2020. COMPARISON: Chest x-ray 06/29/2018 FINDINGS: SUPPORT DEVICES: None. HEART / MEDIASTINUM: No significant abnormality. LUNGS / PLEURA: No significant pulmonary or pleural abnormality. No pneumothorax. ADDITIONAL FINDINGS: No significant additional findings. IMPRESSION: 1. No acute findings. Signer Name: Sung Landis MD Signed: 10/01/2020 12:56 PM Workstation Name: [id number]
[2020-10-01 14:34] LABS: Bilirubin,Urine NEG (Negative); Blood,Urine SM (Negative); Color,Urine Yellow (Yellow); Mucus,Urine FEW /HPF; Protein,Urine <15 mg/dL mg/dL (Negative); Urobilinogen,Urine < 2.0 mg/dL (<2.0); WBC,Urine < 1.0 /HPF (0.0-6.0)
[2020-10-01 15:43] VITALS: BP 142/90
== END 2020-10-01 15:43 | disposition home or self-care (01) ==
LOC: ED 09:27
DX: U07.1 COVID-19 (principal); R10.11 Right upper quadrant pain; R11.2 Nausea with vomiting, unspecified; R05 Cough; R19.7 Diarrhea, unspecified; I10 Essential (primary) hypertension; K21.9 Gastro-esophageal reflux disease without esophagitis; Z87.891 Personal history of nicotine dependence; Z79.899 Other long term (current) drug therapy; Z88.1 Allergy status to other antibiotic agents
CPT/HCPCS: 36415; 71046; 76705; 80053; 81001; 83690; 85025; 96361; 96372; 96374; 96375; 99284; C9113; J0500; J2405; J7030